=== PATIENT | male | born 1980 | race Caucasian/White ===

== ENCOUNTER 2020-07-23 08:07 | Outpatient (REF) | payer BC, SELFPAY ==
[2020-07-23 09:02] LABS: MANUAL DIFF FLAG NO
[2020-07-23 09:07] LABS: Basophils Percent Auto 0.8 % (0-2); Eosinophils Absolute Auto 0.1 X10*3/uL (0.0-0.4); Eosinophils Percent Auto 2.3 % (0-4); Hematocrit 46.5 % (42-52); Hemoglobin 16.1 g/dl (14.0-18.0); Lymphocytes Absolute Auto 0.9 X10*3/uL (1.2-4.9); Lymphocytes Percent Auto 23.3 % (20-40); Mean Corpuscular HGB Conc 34.6 g/dl (31.0-36.0); Mean Corpuscular Hemoglobin 35.9 pg (27.0-33.0); Mean Corpuscular Volume 103.6 fL (80-98); Monocytes Absolute Auto 0.3 X10*3/uL (0.1-1.2); Monocytes Percent Auto 8.5 % (2-11); Neutrophils Absolute Auto 2.5 X10*3/uL (2.0-8.3); Neutrophils Percent Auto 65.1 % (45-73); Platelet Count 189 X10*3/uL (160-400); Red Blood Count 4.49 X10*6/uL (4.60-5.80); Red Cell Distribution Width 12.7 % (11.0-16.0); White Blood Count 3.9 X10*3/uL (4.8-10.8)
[2020-07-23 09:31] LABS: Alanine Aminotransferase 41 U/L (0-40); Albumin Level 4.6 g/dL (3.5-5.0); Alkaline Phosphatase 77 U/L (39-117); Anion Gap 12 (12-20); Aspartate Amino Transferase 29 U/L (5-37); Bilirubin Total 0.8 mg/dL (0.0-1.0); Blood Urea Nitrogen 13 mg/dL (9-16); C Reactive Protein 0.14 mg/dL (< or = 0.50); Calcium 9.1 mg/dL (8.4-10.2); Carbon Dioxide 29 mmol/L (22-29); Chloride 103 mmol/L (96-108); Estimated Glomerular Filt Rate > 60; Glucose Random 111 mg/dL (60-115); Potassium 4.8 mmol/l (3.3-5.1); Sodium 139 mmol/L (135-145); Total Protein 7.1 g/dL (6.5-8.0)
== END 2020-07-23 08:08 | disposition home or self-care (01) ==
LOC: HO.LAB 08:07
PROVIDERS: PCP Internal Medicine; Visit Provider Internal Medicine Gastroenterology
DX: K51.30 Ulcerative (chronic) rectosigmoiditis without complications (principal)
CPT/HCPCS: 36415; 80053; 80299; 85025; 86140

== ENCOUNTER → 2020-07-28 08:07 | Outpatient (BNVA) | payer SELFPAY | PROVIDERS: PCP Internal Medicine; Referring Provider Internal Medicine; Visit Provider Internal Medicine Gastroenterology | DX: K51.30 Ulcerative (chronic) rectosigmoiditis without complications (principal); K21.9 Gastro-esophageal reflux disease without esophagitis; Z79.899 Other long term (current) drug therapy | CPT/HCPCS: 99212 ==

== ENCOUNTER → 2021-05-21 07:51 | Outpatient (BNVA) | payer BC, SELFPAY | PROVIDERS: Visit Provider Internal Medicine Gastroenterology ==

== ENCOUNTER 2022-03-09 14:15 | Outpatient (REF) | payer BC, SELFPAY ==
[2022-03-09 14:26] LABS: MANUAL DIFF FLAG NO
[2022-03-09 15:08] LABS: Basophils Percent Auto 0.5 % (0-2); Eosinophils Absolute Auto 0.1 X10*3/uL (0.0-0.4); Eosinophils Percent Auto 1.5 % (0-4); Hematocrit 42.9 % (42.0-52.0); Hemoglobin 15.2 g/dl (14.0-18.0); Imm Gran Abs Auto 0.02 X10*3/uL (0.00-0.03); Imm Gran Pct Auto 0.3 % (0.0-0.4); Lymphocytes Absolute Auto 1.8 X10*3/uL (1.2-4.9); Lymphocytes Percent Auto 29.4 % (20-40); Mean Corpuscular HGB Conc 35.4 g/dl (31.0-36.0); Mean Corpuscular Volume 101.7 fL (80.0-98.0); Mean Platelet Volume 10.2 fL (9.4-12.4); Monocytes Absolute Auto 0.4 X10*3/uL (0.1-1.2); Monocytes Percent Auto 6.6 % (2-11); Neutrophils Absolute Auto 3.8 x10*3/uL (2.0-8.3); Neutrophils Percent Auto 61.7 % (45-73); Platelet Count 201 X10*3/uL (160-400); Red Blood Count 4.22 X10*6/uL (4.60-5.80); Red Cell Distribution Width 13.5 % (11.0-16.0); White Blood Count 6.2 X10*3/uL (4.8-10.8)
[2022-03-09 15:53] LABS: Vitamin D 25-OH Total 40.4 ng/mL (>30)
[2022-03-09 16:09] LABS: Vitamin B12 475 pg/mL (200-900)
[2022-03-09 16:32] LABS: Alanine Aminotransferase 27 U/L (0-40); Albumin Level 4.7 g/dL (3.5-5.0); Alkaline Phosphatase 96 U/L (39-117); Anion Gap 13 (12-20); Aspartate Amino Transferase 21 U/L (5-37); Bilirubin Total 0.3 mg/dL (0.0-1.0); Blood Urea Nitrogen 11 mg/dL (9-16); C Reactive Protein 0.16 mg/dL (< or = 0.50); Calcium 9.4 mg/dL (8.4-10.2); Carbon Dioxide 28 mmol/L (22-29); Chloride 105 mmol/L (96-108); Estimated Glomerular Filt Rate > 60; Glucose Random 86 mg/dL (60-115); Potassium 4.4 mmol/L (3.3-5.1); Sodium 142 mmol/L (135-145); Total Protein 7.2 g/dL (6.5-8.0)
[2022-03-10 04:08] LABS: Hepatitis A Antibody IgG Nonreactive (Nonreactive); ~Hepatitis A Antibody IgG 0.26 S/CO (0.00-0.99)
[2022-03-10 04:11] LABS: HBS Num1 0.62 mIU/mL (0-7.99); HBsAGNum1 0.22 S/CO (0.00-0.99); Hepatitis B Surface Antigen Negative (Negative); ~Hepatitis B Surface Antibody NONREACTIVE (Nonreactive)
== END 2022-03-09 14:16 | disposition home or self-care (01) ==
LOC: HO.LAB 14:15
PROVIDERS: PCP Internal Medicine; Visit Provider Internal Medicine Gastroenterology
DX: K51.30 Ulcerative (chronic) rectosigmoiditis without complications (principal)
CPT/HCPCS: 36415; 80053; 82306; 82607; 85025; 86140; 86706; 86708; 87340

== ENCOUNTER → 2022-03-11 08:30 | Outpatient (BNVA) | payer BC, SELFPAY | PROVIDERS: PCP Internal Medicine; Visit Provider Internal Medicine Gastroenterology | DX: Z23 Encounter for immunization (principal); K21.9 Gastro-esophageal reflux disease without esophagitis; K51.30 Ulcerative (chronic) rectosigmoiditis without complications | CPT/HCPCS: 90471; 90472; 90632; 90746 ==

== ENCOUNTER 2022-04-12 16:19 | Outpatient (REF) | payer BC, SELFPAY ==
--- NOTE | ~2022-04-12 | XR_ITS ---
EXAMINATION: XR STERNUM CLINICAL INFORMATION: Other specified disorders of cartilage. COMPARISON: Chest 04/20/2018. TECHNIQUE: 2 views of the sternum were obtained. FINDINGS: The sternum is intact with no bony erosive changes, lucencies or sclerosis. No fracture identified. The soft tissues around the sternum are normal. XR/XR sternum min 2V IMPRESSION: Unremarkable sternum exam.
== END 2022-04-12 16:20 | disposition home or self-care (01) ==
LOC: HO.XRAY 16:19
PROVIDERS: PCP Nurse Practitioner Family; Visit Provider Nurse Practitioner Family
DX: M94.8X8 Other specified disorders of cartilage, other site (principal)
CPT/HCPCS: 71120

== ENCOUNTER 2022-05-17 14:17 | Outpatient (REF) | payer BC, SELFPAY ==
--- NOTE | ~2022-05-17 | US_ITS ---
EXAMINATION: US SCROTUM CLINICAL INFORMATION: Scrotal varices. COMPARISON: None TECHNIQUE: A sonogram of the scrotum was performed assessing real-time grajeda-scale appearance and color Doppler flow. Spectral Doppler analysis of the arterial and venous flow were performed in the testes bilaterally. FINDINGS: RIGHT: Right testicle measures 4.0 x 2.1 x 3.1 cm, volume 13.7 mL. No focal testicular parenchymal lesions are visualized. Spectral Doppler analysis of the arterial and venous flow is normal in the right testis. Right epididymal head is normal in size. No right hydrocele is seen. Numerous dilated right testicular veins are seen up to 4 mm in diameter. Right epididymal Doppler flow is normal. LEFT: Left testicle measures 3.9 x 1.6 x 2.7 cm, volume 8.7 mL. No focal testicular parenchymal lesions are visualized. Spectral Doppler analysis of the arterial and venous flow is normal in the left testis. Left epididymal head is normal in size. No left hydrocele is seen. Numerous dilated left testicular veins up to 6 mm in diameter. Left epididymal Doppler flow is normal. US/US scrotum IMPRESSION: Left greater than right bilateral varicoceles.
== END 2022-05-17 14:18 | disposition home or self-care (01) ==
LOC: HO.US 14:17
PROVIDERS: Visit Provider Nurse Practitioner Family
DX: I86.1 Scrotal varices (principal)
CPT/HCPCS: 76870

== ENCOUNTER 2022-07-26 09:46 | Day surgery (SDC) | payer BC, SELFPAY ==
[2022-07-20 12:36] VITALS: BMI 29.3
--- NOTE | 2022-07-23 08:31 | HO.ANESPROP2 ---
Documented by User: Ruth Benson NP 07/23/22 08:32 HPI - Anesthesia Eval Consult details Narrative: 42yo M for Upper Endoscopy and Colonoscopy [facility] Active Problems Active Problems: All Active Problems (Updated 03/25/22 @ 18:19 by Maurilio Valente, [facility]) Varicocele (Acute) Fibroma of foot (Acute) Pigmented skin lesion of uncertain behavior of head (Acute) Wart (Acute) Xiphoiditis (Acute) GERD (gastroesophageal reflux disease) (Acute) Ulcerative proctosigmoiditis (Acute) Past Medical History Medical History GERD (gastroesophageal reflux disease) Ulcerative proctosigmoiditis Family History Family History Father Family history of high blood pressure Mother Family history of high blood pressure Sister Substance use disorder Surgical History Surgical History History of appendectomy History of colonoscopy History of hernia repair Social History Social History Housing: House Alcohol intake: current Alcohol intake frequency: a few times a month Alcohol type: beer, wine and hard liquor Patient Tobacco Use Status: Never used Tobacco e-Cigarette/Vaping Use: Never Used Use of substances other than those prescribed or required for medical reasons: No Are you DNR?: No Advance Directives: No Advance Directives Information Provided: Yes service: No Current occupational status: employed Cognitive needs: No Hearing needs: No Vision needs: No Meds Allergies Allergy/AdvReac Type Severity Reaction Status Date / Time pollen extracts [POLLEN] Allergy Unknown CONGESTED Verified 03/25/22 15:54 scallops Allergy Unknown throat Uncoded 05/21/21 07:59 swelling and itch Home Medications Medication Instructions Recorded Confirmed Last Taken Type cetirizine 10 mg capsule (Zyrtec) 10 mg PO DAILY PRN 03/11/22 03/25/22 Unknown History Exam Exam Date and Time: July 23, 2022 0831 Height,Weight and Vital Signs: Height 6 ft 4 in Weight 109.316 kg Pertinent Lab Results Pertinent Lab Results: Laboratory Tests 03/09/22 03/09/22 14:25 14:25 WBC 6.2 Hgb 15.2 Hct 42.9 Plt Count 201 Sodium 142 Potassium 4.4 Chloride 105 Carbon Dioxide 28 BUN 11 Creatinine 0.90 Assessment and Plan Assessment Anesthesia Assessment: Chart Reviewed Documented by User: Cathy Oliva MD 07/26/22 10:17 [facility] Past Medical History Medical History GERD (gastroesophageal reflux disease) Ulcerative proctosigmoiditis Family History Family History Father Family history of high blood pressure Mother Family history of high blood pressure Sister Substance use disorder Surgical History Surgical History History of appendectomy History of colonoscopy History of hernia repair History of Problems with Anesthesia: No Social History Social History Housing: House Alcohol intake: current Alcohol intake frequency: a few times a month Alcohol type: beer, wine and hard liquor Patient Tobacco Use Status: Never used Tobacco e-Cigarette/Vaping Use: Never Used Use of substances other than those prescribed or required for medical reasons: No Are you DNR?: No Advance Directives: No Advance Directives Information Provided: Yes service: No Current occupational status: employed Cognitive needs: No Hearing needs: No Vision needs: No Meds Allergies Allergy/AdvReac Type Severity Reaction Status Date / Time pollen extracts [POLLEN] Allergy Unknown CONGESTED Verified 03/25/22 15:54 scallops Allergy Unknown throat Uncoded 05/21/21 07:59 swelling and itch Home Medications Medication Instructions Recorded Confirmed Last Taken Type cetirizine 10 mg capsule (Zyrtec) 10 mg PO DAILY PRN 03/11/22 03/25/22 Unknown History Exam Airway Mallampati Class: III TM Dist: >3cm Neck ROM: Full Loose/Missing/Broken Teeth: No Heart: RRR Lungs: CTA Assessment and Plan Assessment Anesthesia Assessment: Anesthesia Plan Discussed Final Anesthetic Review History of Problems with Anesthesia: No NPO: Yes ASA Class: II Final Preanesthetic Review: Meds/Allgs Chart Reviewed, Consent Obtained/Reviewed and Anes Risks/Benef Reviewed Patient Risk: Low Procedure Risk: Low Anesthetic Plan Anesthetic Plan: MAC: Disposition: Standard PACU
[2022-07-26 09:55] VITALS: BP 119/78; PULSE 72; RESP 16; TEMP 36.1; O2SAT 96
--- NOTE | 2022-07-26 09:58 | MHC.SHP ---
Pre-Procedural Eval Section A Date of Service: 07/26/22 The patient is an INPATIENT: No The History & Physical has been completed within 30 days and I have reviewed it.: No Section B Chief Complaint: Ulcerative (chronic) rectosigmoiditis,reflux disea Details of Present Illness: colon cancer screen, Crohn's disease, GERD Relevant Family History (Specify if Yes): No Relevant Social History: None Present Medications: see Short Stay Collaborative assessment Medical History: Significant History ( GERD, Crohn's disease) History of Previous Operations: Relevant previous surgery/procedure and date(s) (History of appendectomy History of colonoscopy History of hernia repair) Allergies: Allergies Allergy/AdvReac Type Severity Reaction Status Date / Time pollen extracts [POLLEN] Allergy Unknown CONGESTED Verified 03/25/22 15:54 scallops Allergy Unknown throat Uncoded 05/21/21 07:59 swelling and itch Review of Systems Sugical H&P ROS: Negative: Constitution, Cardiovascular, Respiratory and Gastrointestinal Exam Surgical H&P Exam: Normal: Heart, Normal: Lungs, Normal: Extremities and Normal: Abdomen Plan Diagnosis/Plan: Unchanged I have reviewed the history and physical and performed a pertinent physical examination on my patient. No changes have occurred unless specified.
--- NOTE | 2022-07-26 10:05 | P.BOP_ITS ---
Brief Operative Note Date of Service: 07/26/22 Pre-op diagnosis: colon cancer screening, Crohn's disease, GERD Post-op diagnosis: other ( GERD, gastritis, gastric polyps, duodenal nodule, diverticulosis, hemorrhoids) Procedure: UPPER GI ENDOSCOPY WITH BIOPSY. COLONOSCOPY TO CECUM WITH BIOPSIES Surgeon: Tami Garland MD Anesthesia: MAC Was an Super[employer] used for this Procedure?: Yes Super[employer]: Jackie Landrum Estimated blood loss (mL): 0 Pathology: other (A. duodenal nodule B. gastric antrum bxs, R/O H. pylori C. gastric polyp D. distal esophagus, R/O Orellana's esophagus E. right colon bxs, R/O Crohn's disease F. transverse col) Condition: stable Disposition: PACU
--- NOTE | 2022-07-26 10:06 | W.PM.OPN ---
Operative Note Operative Note Date of Service: 07/26/22 Narrative: Pre-op diagnosis: colon cancer screening, Crohn's disease, GERD Post-op diagnosis:?other ( GERD, gastritis, gastric polyps, duodenal nodule, diverticulosis, hemorrhoids) Surgeon: Tami Garland MD Anesthesia:?MAC FLEXIBLE TRANSORAL UPPER GASTROINTESTINAL ENDOSCOPY WITH BIOPSIES AND COLONOSCOPY TILL CECUM WITH BIOPSIES UPPER ENDOSCOPY Consent: Indications for the procedure and potential complications of bleeding, perforation, reaction to medications and missed diagnosis were discussed with the patient and informed consent was obtained. Instrument: Olympus GIF H 190 mid size upper endoscope Monitoring: Vital signs and clinical assessment, continuous EKG monitoring, Pulse oximetry, Carbon Dioxide monitoring and blood pressure monitoring were done throughout the procedure. Procedure: The patient was placed in the left lateral decubitis position and pre-procedure medications were administered and a bite block was placed. The endoscope was inserted into the mouth and advanced under direct vision to the third part of duodenum. A careful inspection was made as the upper endoscope was withdrawn including a retroflexed examination of the proximal stomach; Findings and interventions are described below. Findings: Larynx: Normal Esophagus: GE junction at 42 cms. No esophagitis. 1 cms tongue of possible Orellana's - biopsied Stomach: A few 1 to 1.5 cms benign appearing polyps in the gastric body - biopsied. Mild gastric erythema. Biopsies were obtained. Grade 2 flap valve on retroflexed examination of the cardia. Duodenum: Normal bulb. A 10 mm polyp/nodule in the medial wall of proximal descending duodenum - biopsied. Intervention: Biopsies as noted above COLONOSCOPY PROCEDURE NOTE Consent: Indications for the procedure and potential complications of bleeding, perforation, reaction to medications and missed diagnosis were discussed with the patient and informed consent was obtained. Instrument: Olympus CF H 190 L variable stiffness adult colonoscope Monitoring: Vital signs and clinical assessment, intermittent blood pressure monitoring, continuous EKG monitoring, Pulse oximetry and Carbon Dioxide monitoring were done throughout the procedure. Colon withdrawl time was 30 minutes. Procedure: The patient was placed in the left lateral decubitis position and pre-procedure medications were administered. After a digital rectal examination of the ano-rectum, the video colonoscope was inserted into the rectum and advanced through the colon to the cecum. The colonoscope was slowly withdrawn in a retrograde panoramic fashion and the colon mucosa was carefully examined including a retroflexed view of the rectum. Findings and interventions are described below. Procedure Difficulty: colon was long and tortuous and there was recurrent loop formation. patient was placed in the supine position and LLQ pressure was applied to intubate the cecum Findings: Terminal Ileum: Not evaluated Cecum: Normal Ascending Colon: Normal Transverse Colon: Normal Descending Colon: Moderate diverticulosis Sigmoid Colon: Moderate diverticulosis Rectum: Normal Ano-rectum: Moderate internal hemorrhoids Colon preparation: Good to fair despite copious irrigation. Suboptimal exam due to excessive spasm in the colon. Impression and Post Procedure Diagnosis: Endoscopy Findings: ESOPHAGUS: GE junction at 42 cms. No esophagitis. 1 cms tongue of possible Orellana's - biopsied STOMACH: A few 1 to 1.5 cms benign appearing polyps in the gastric body - biopsied. Mild gastric erythema. Biopsies were obtained. DUODENUM: Normal bulb. A 10 mm polyp/nodule in the medial wall of proximal descending duodenum - biopsied. Colonoscopy Findings: No polyps were detected. Inactive colitis in the left colon - random biopsies were obtained. Moderate diverticulosis seen in the left colon Moderate hemorrhoids on retroflexed exam. Plan: Await pathology results Patient has an appointment on 08/19/22 in the GI Clinic with Tami Garland M.D. Repeat Colonoscopy interval based on path results - in 1-2 years if no dysplasia seen on biopsies. Colon polyps and diverticulosis handouts were given in the discharge area
[2022-07-26] MEDS: Lactated Ringers 1,000 ML 100 ML IVCONT (10:17)
[2022-07-26 11:33] VITALS: BP 115/69; PULSE 65; RESP 20; TEMP 36.4; O2SAT 100
[2022-07-26 11:48] VITALS: BP 112/78; PULSE 61; RESP 18; TEMP 36.6; O2SAT 100
== END 2022-07-26 12:25 | disposition home or self-care (01) ==
PROVIDERS: PCP Nurse Practitioner Family; Visit Provider Internal Medicine Gastroenterology
PROC: (CPT 45380; principal; 2022-07-26 11:00)
DX: K51.30 Ulcerative (chronic) rectosigmoiditis without complications (principal); K57.30 Diverticulosis of large intestine without perforation or abscess without bleeding; K64.8 Other hemorrhoids; D13.2 Benign neoplasm of duodenum; K21.9 Gastro-esophageal reflux disease without esophagitis; K29.50 Unspecified chronic gastritis without bleeding; K31.7 Polyp of stomach and duodenum; Z79.899 Other long term (current) drug therapy
CPT/HCPCS: 45380; 43239; 88305; 88342

== ENCOUNTER → 2022-10-21 09:40 | Outpatient (BNVA) | payer OTHER, SELFPAY | PROVIDERS: PCP Nurse Practitioner Family; Visit Provider Urology | DX: Z13.89 Encounter for screening for other disorder (principal) ==

== ENCOUNTER → 2022-11-18 07:30 | Outpatient (BNVA) | payer OTHER, SELFPAY | PROVIDERS: PCP Nurse Practitioner Family; Referring Provider Nurse Practitioner Family; Visit Provider Internal Medicine Gastroenterology | DX: Z13.89 Encounter for screening for other disorder (principal) ==

== ENCOUNTER 2023-03-30 10:40 | Outpatient (AMB) | payer OTHER, SELFPAY ==
--- NOTE | 2023-03-30 10:59 | AM.OFFWIN_ITS ---
Intake Vital Signs 03/30/23 11:01 Height 6 ft 4 in BP 150/80 H Blood Pressure Location Lt brachial Position Sitting Pulse 68 Pulse Source Pulse Oximeter Temp 97.8 F Temp Source Temporal Artery Scan Pulse Oximetry (%) 97 Oxygen Delivery Method Room Air Intake Visit Reasons: EST/congestion for past month Intake Note: pt is here congestion, cough over a month Patient Tobacco Use Status: Never used Tobacco Allergies pollen extracts [POLLEN] Allergy (Unknown, Verified 03/30/23 11:12) CONGESTED scallops Allergy (Unknown, Uncoded 12/22/22 08:10) throat swelling and itch Medication List - Last Reconciled 03/30/23 by MARGARET Bain-JENNIFER bisacodyl (Dulcolax (bisacodyl)) 10 mg (2 x 5 mg) PO ONCE 1 day cetirizine (Zyrtec) 10 mg PO DAILY PRN mercaptopurine 100 mg (2 x 50 mg) PO DAILY 3 months mesalamine 4.8 grams (4 x 1.2 gram) PO DAILY 90 days nystatin 1 appl topical DAILY omeprazole 20 mg PO BID 90 days polyethylene glycol 3350 (Miralax) 238 grams PO ONCE 1 day Do you need a note to return to daycare/school/sports/work: Yes HPI HPI Comments History of Present Illness Details here today with complaints of sinus congestion and head cold so she did with a headache that is been present for about a month reports 1 month ago becoming ill with similar symptoms which resolved for a short period of time and came back. History of seasonal allergy is has been out camping for the last few weeks reports being affected by the pollen. Also known sick exposure at the campground he was at. He denies fever and chills. Admits to mild sore throat and some pressure in his ears. Postnasal drip. Denies a cough or chest pain. REPLACED BY [facility] Medical History GERD (gastroesophageal reflux disease) Ulcerative proctosigmoiditis Surgical History History of appendectomy History of colonoscopy History of esophagogastroduodenoscopy (EGD) History of hernia repair Family History Father Family history of high blood pressure Mother Family history of high blood pressure Sister Substance use disorder Social History Housing: House Alcohol intake: current Alcohol intake frequency: a few times a month Alcohol type: beer, wine and hard liquor Patient Tobacco Use Status: Never used Tobacco e-Cigarette/Vaping Use: Never Used service: No Current occupational status: employed Cognitive needs: No Hearing needs: No Vision needs: No Review of Systems Const All systems reviewed & are unremarkable except as noted in HPI and below Physical Exam Vital Signs: Last Vital Signs Temp 97.8 F 03/30/23 11:01 Pulse 68 03/30/23 11:01 BP 150/80 H 03/30/23 11:01 Pulse Ox 97 03/30/23 11:01 Oxygen Delivery Method Room Air 03/30/23 11:01 Const Other: Awake alert oriented no acute distress sclera and conjunctiva clear bilateral TM intact with effusions bilat nares patent, turbinates pale and boggy edematous on the left, frontal & maxillary sinuses tender to palpation bilaterally postnasal drip otherwise pharynx within normal limits rrr lung sounds clear to auscultation bilaterally Assessment & Plan Assessment & Plan (1) Sinusitis: Code(s): J32.9 - Chronic sinusitis, unspecified Medications: New amoxicillin-pot clavulanate 875-125 mg 1 tab PO BID 14 tabs 0RF 7 days Coding Level of Care Code Est Pt Level 3 (87583) Diagnoses Sinusitis J32.9
[2023-03-30 11:01] VITALS: BP 150/80; PULSE 68; TEMP 36.6; O2SAT 97
== END 2023-03-30 11:32 | disposition home or self-care (01) ==
PROVIDERS: PCP Nurse Practitioner Family; Visit Provider Nurse Practitioner Family
DX: J32.9 Chronic sinusitis, unspecified (principal)
CPT/HCPCS: 99213

== ENCOUNTER 2023-04-05 10:13 | Outpatient (AMB) | payer OTHER, SELFPAY ==
--- NOTE | 2023-04-05 11:16 | AM.OFFWIN_ITS ---
Intake Vital Signs 04/05/23 11:19 Height 6 ft 4 in BP 122/78 Blood Pressure Location Rt brachial Position Sitting Pulse 67 Pulse Source Pulse Oximeter Temp 96.4 F L Temp Source Temporal Artery Scan Pulse Oximetry (%) 98 Oxygen Delivery Method Room Air Intake Visit Reasons: EP cold symptoms after rx Intake Note: Pt is here c/o cold symptoms even after being seen on 03/30. Pt states antibiotics has not helped and he is almost done. Patient Tobacco Use Status: Never used Tobacco Allergies pollen extracts [POLLEN] Allergy (Unknown, Verified 04/05/23 11:18) CONGESTED scallops Allergy (Unknown, Uncoded 04/05/23 11:18) throat swelling and itch Do you need a note to return to daycare/school/sports/work: No HPI EP cold symptoms after rx HPI Details 42-year-old male presents to the office for a sick visit. Continues to have postnasal drip, cough and minimal shortness of breath. [facility] Medical History GERD (gastroesophageal reflux disease) Ulcerative proctosigmoiditis Surgical History History of appendectomy History of colonoscopy History of esophagogastroduodenoscopy (EGD) History of hernia repair Family History Father Family history of high blood pressure Mother Family history of high blood pressure Sister Substance use disorder Social History Housing: House Alcohol intake: current Alcohol intake frequency: a few times a month Alcohol type: beer, wine and hard liquor Patient Tobacco Use Status: Never used Tobacco e-Cigarette/Vaping Use: Never Used service: No Current occupational status: employed Cognitive needs: No Hearing needs: No Vision needs: No Physical Exam Vital Signs: Last Vital Signs Temp 96.4 F L 04/05/23 11:19 Pulse 67 04/05/23 11:19 BP 122/78 04/05/23 11:19 Pulse Ox 98 04/05/23 11:19 Oxygen Delivery Method Room Air 07/18/23 11:19 Const General: cooperative and healthy appearing Nutritional Appearance: well nourished Orientation/consciousness: patient oriented x3 Limitations: no limitations HEENT Head: Yes normal to inspection Eyes General: appearance normal, both eyes and all related structures Neck Neck: Yes normal visual inspection Chest Chest palpation & inspection: normal palpation of entire chest wall Resp Effort & Inspection: normal respiratory effort Neuro General: patient oriented x3 Assessment & Plan Assessment & Plan (1) Aspiration pneumonia: Comment: Azithromycin and Flonase added to the regimen Code(s): J69.0 - Pneumonitis due to inhalation of food and vomit (2) Upper respiratory tract infection: Code(s): J06.9 - Acute upper respiratory infection, unspecified Coding Level of Care Code Est Pt Level 3 (43860) Diagnoses Aspiration pneumonia J69.0 Upper respiratory tract infection J06.9
[2023-04-05 11:19] VITALS: BP 122/78; PULSE 67; TEMP 35.8; O2SAT 98
== END 2023-04-05 12:07 | disposition home or self-care (01) ==
PROVIDERS: PCP Nurse Practitioner Family; Visit Provider Internal Medicine
DX: J69.0 Pneumonitis due to inhalation of food and vomit (principal); J06.9 Acute upper respiratory infection, unspecified
CPT/HCPCS: 99213

== ENCOUNTER 2023-04-12 13:35 | Outpatient (AMB) | payer OTHER, SELFPAY ==
--- NOTE | 2023-04-12 14:06 | MHC.OFFWIV ---
Intake Vital Signs 04/12/23 14:08 Height 6 ft 4 in BP 130/78 Blood Pressure Location Lt brachial Position Sitting Pulse 78 Pulse Source Pulse Oximeter Temp 95.9 F L Temp Source Temporal Artery Scan Pulse Oximetry (%) 98 Oxygen Delivery Method Room Air Intake Visit Reasons: EP, Bacteria in head? Intake Note: Pt is here c/o having a cold headache. Pt states he has been on two antibiotics and none have helped him Patient Tobacco Use Status: Never used Tobacco Allergies pollen extracts [POLLEN] Allergy (Unknown, Verified 04/12/23 14:09) CONGESTED scallops Allergy (Unknown, Uncoded 04/12/23 14:09) throat swelling and itch Do you need a note to return to daycare/school/sports/work: No HPI EP, Bacteria in head? HPI Details 42-year-old male presents to the office for a sick visit. Patient has been seen twice for persisting congestion, sneezing, earaches. He has received 2 rounds of antibiotics and Flonase. He reports no improvement in symptoms. [facility] Medical History GERD (gastroesophageal reflux disease) Ulcerative proctosigmoiditis Surgical History History of appendectomy History of colonoscopy History of esophagogastroduodenoscopy (EGD) History of hernia repair Family History Father Family history of high blood pressure Mother Family history of high blood pressure Sister Substance use disorder Social History Housing: House Alcohol intake: current Alcohol intake frequency: a few times a month Alcohol type: beer, wine and hard liquor Patient Tobacco Use Status: Never used Tobacco e-Cigarette/Vaping Use: Never Used service: No Current occupational status: employed Cognitive needs: No Hearing needs: No Vision needs: No Physical Exam Vital Signs: Last Vital Signs Temp 95.9 F L 04/12/23 14:08 Pulse 78 04/12/23 14:08 BP 130/78 04/12/23 14:08 Pulse Ox 98 04/12/23 14:08 Oxygen Delivery Method Room Air 04/12/23 14:08 Const General: cooperative and healthy appearing Nutritional Appearance: well nourished Orientation/consciousness: patient oriented x3 Limitations: no limitations HEENT Head: Yes normal to inspection Eyes General: appearance normal, both eyes and all related structures Neck Neck: Yes normal visual inspection Chest Chest palpation & inspection: normal palpation of entire chest wall Resp Effort & Inspection: normal respiratory effort Neuro General: patient oriented x3 Assessment & Plan Assessment & Plan (1) Upper respiratory tract infection: Code(s): J06.9 - Acute upper respiratory infection, unspecified Plan: Continue Flonase. Singular added to the regimen. Coding Level of Care Code Est Pt Level 3 (66081) Diagnoses Upper respiratory tract infection J06.9
[2023-04-12 14:08] VITALS: BP 130/78; PULSE 78; TEMP 35.5; O2SAT 98
== END 2023-04-12 14:43 | disposition home or self-care (01) ==
PROVIDERS: PCP Nurse Practitioner Family; Visit Provider Internal Medicine
DX: J06.9 Acute upper respiratory infection, unspecified (principal)
CPT/HCPCS: 99213

== ENCOUNTER 2023-04-26 10:31 | Day surgery (SDC) | payer OTHER, SELFPAY ==
[2023-04-22 09:01] VITALS: BMI 31.4
[2023-04-26 11:30] VITALS: BP 130/87; PULSE 83; RESP 18; TEMP 36.3; O2SAT 97; BMI 31.0
--- NOTE | 2023-04-26 12:09 | HO.ANESPROP2 ---
COUNT INCLUDES THE [facility] Active Problems Active Problems: All Active Problems (Updated 04/05/23 @ 12:15 by Karan Mckinney MD) Upper respiratory tract infection (Acute) Sinusitis (Acute) Tinea cruris (Acute) Scrotal erythema (Acute) Varicocele (Acute) Fibroma of foot (Acute) Pigmented skin lesion of uncertain behavior of head (Acute) Wart (Acute) Xiphoiditis (Acute) GERD (gastroesophageal reflux disease) (Acute) Ulcerative proctosigmoiditis (Acute) Past Medical History Medical History GERD (gastroesophageal reflux disease) Ulcerative proctosigmoiditis Family History Family History Father Family history of high blood pressure Mother Family history of high blood pressure Sister Substance use disorder Surgical History Surgical History History of appendectomy History of colonoscopy History of esophagogastroduodenoscopy (EGD) History of hernia repair History of Problems with Anesthesia: No Social History Social History Housing: House Alcohol intake: current Alcohol intake frequency: a few times a month Alcohol type: beer, wine and hard liquor Patient Tobacco Use Status: Never used Tobacco e-Cigarette/Vaping Use: Never Used Use of substances other than those prescribed or required for medical reasons: No Are you DNR?: No Advance Directives: No Advance Directives Information Provided: Yes Recently lost weight without trying: No Nutrition Risks: No Nutritional Risk Poor oral hygiene: No service: No Current occupational status: employed Cognitive needs: No Hearing needs: No Vision needs: No Meds Allergies Allergy/AdvReac Type Severity Reaction Status Date / Time pollen extracts [POLLEN] Allergy Unknown CONGESTED Verified 04/12/23 14:09 scallops Allergy Unknown throat Uncoded 04/12/23 14:09 swelling and itch Home Medications Medication Instructions Recorded Confirmed Last Taken Type cetirizine 10 mg capsule (Zyrtec) 10 mg PO DAILY PRN 03/11/22 03/30/23 Unknown History Exam Exam Date and Time: April 26, 2023 1209 Height,Weight and Vital Signs: Height 6 ft 4 in Weight 115.666 kg Last Vital Signs Temp 97.3 F 04/26/23 11:30 Pulse 83 04/26/23 11:30 Resp 18 04/26/23 11:30 BP 130/87 04/26/23 11:30 Pulse Ox 97 04/26/23 11:30 O2 Del Method Room Air 04/26/23 11:30 Airway Mallampati Class: III TM Dist: >3cm Neck ROM: Full Loose/Missing/Broken Teeth: No (RRR) Lungs: CTA Assessment and Plan Assessment Anesthesia Assessment: Anesthesia Plan Discussed and Chart Reviewed Final Anesthetic Review History of Problems with Anesthesia: No NPO: Yes ASA Class: II Final Preanesthetic Review: Meds/Allgs Chart Reviewed, Consent Obtained/Reviewed and Anes Risks/Benef Reviewed Patient Risk: Low Procedure Risk: Intermediate Anesthetic Plan Anesthetic Plan: MAC: Disposition: Standard PACU
--- NOTE | 2023-04-26 12:30 | P.HPSUR_ITS ---
Pre-Procedural Eval Section A Date of Service: 04/26/23 The patient is an INPATIENT: No The History & Physical has been completed within 30 days and I have reviewed it.: No Section B Chief Complaint: Crohn's disease, FU of duodenal polyp Relevant Family History (Specify if Yes): No Relevant Social History: None Present Medications: see Short Stay Collaborative assessment Medical History: Significant History (GERD (gastroesophageal reflux disease) Ulcerative proctosigmoiditis) History of Previous Operations: Relevant previous surgery/procedure and date(s) (History of appendectomy History of colonoscopy History of esophagogastroduodenoscopy (EGD) History of hernia repair) Allergies: Allergies Allergy/AdvReac Type Severity Reaction Status Date / Time pollen extracts [POLLEN] Allergy Unknown CONGESTED Verified 04/12/23 14:09 scallops Allergy Unknown throat Uncoded 04/12/23 14:09 swelling and itch Review of Systems Sugical H&P ROS: Negative: Constitution, Cardiovascular, Respiratory and Ga strointestinal Exam Surgical H&P Exam: Normal: Heart, Normal: Lungs, Normal: Extremities and Normal: Abdomen Plan Diagnosis/Plan: Change (EGD for fu of duodenal polyp and colonoscopy for IBD surveillance) I have reviewed the history and physical and performed a pertinent physical examination on my patient. No changes have occurred unless specified. Time Spent With Patient Time: Total time managing care of this patient today ____ minutes.
--- NOTE | 2023-04-26 12:43 | W.PM.OPN ---
Operative Note Operative Note Date of Service: 04/26/23 Narrative: FLEXIBLE TRANSORAL UPPER GASTROINTESTINAL ENDOSCOPY WITH BIOPSIES AND COLONOSCOPY TILL CECUM WITH BIOPSIES, SNARE POLYPECTOMY AND CHROMOENDOSCOPY Pre-op diagnosis: IBD surveillance, follow-up of duodenal polyp Post-op diagnosis: GERD, duodenal polyp, colon polyps, diverticulosis, hemorrhoids, inactive IBD? Endoscopist:? Tami Garland MD Anesthesia:?MAC UPPER ENDOSCOPY Consent: Indications for the procedure and potential complications of bleeding, perforation, reaction to medications and missed diagnosis were discussed with the patient and informed consent was obtained. Instrument: Olympus GIF H 190 mid size upper endoscope Monitoring: Vital signs and clinical assessment, continuous EKG monitoring, Pulse oximetry, Carbon Dioxide monitoring and blood pressure monitoring were done throughout the procedure. Procedure: The patient was placed in the left lateral decubitis position and pre-procedure medications were administered and a bite block was placed. The endoscope was inserted into the mouth and advanced under direct vision to the third part of duodenum. A careful inspection was made as the upper endoscope was withdrawn including a retroflexed examination of the proximal stomach; Findings and interventions are described below. Findings: Larynx: Normal Esophagus: GE junction at 42 cms. No esophagitis. 1 cms tongue of possible Orellana's - No Orellana's on biopsies obtained during last EGD. Stomach:?A few 1 to 1.5 cms benign appearing polyps in the gastric body - benign on biopsies obtained during last EGD. Grade 2 flap valve on retroflexed examination of the cardia. Duodenum:?Normal bulb.? A 10 mm polyp/nodule in the medial wall of proximal descending duodenum (tubular adenoma on previous biopsies). Polyp was raised with 3 cc of normal saline and removed with a hot snare. Polypectomy site was marked by rajat ink Intervention: Biopsies as noted above COLONOSCOPY PROCEDURE NOTE Consent: Indications for the procedure and potential complications of bleeding, perforation, reaction to medications and missed diagnosis were discussed with the patient and informed consent was obtained. Instrument: Olympus CF H 190 L variable stiffness adult colonoscope Monitoring: Vital signs and clinical assessment, intermittent blood pressure monitoring, continuous EKG monitoring, Pulse oximetry and Carbon Dioxide monitoring were done throughout the procedure. Colon withdrawl time was 25 minutes. Procedure: The patient was placed in the left lateral decubitis position and pre-procedure medications were administered. After a digital rectal examination of the ano-rectum, the video colonoscope was inserted into the rectum and advanced through the colon to the cecum. The colonoscope was slowly withdrawn in a retrograde panoramic fashion and the colon mucosa was carefully examined including a retroflexed view of the rectum. Findings and interventions are described below. Procedure Difficulty: : Without difficulty Findings: Terminal Ileum: Distal 5 cms was examined and appeared normal Cecum: A 7-8 mm sessile polyp removed with a cold snare Ascending Colon: Normal Transverse Colon: Normal Descending Colon: Moderate diverticulosis Sigmoid Colon: Moderate diverticulosis Rectum: A few 5 to 10 mm diminutive appearing polyps - two were biopsied. Ano-rectum: Moderate internal hemorrhoids Colon preparation: Excellent Impression and Post Procedure Diagnosis: Endoscopy Findings: ESOPHAGUS: 1 cms tongue of possible Orellana's - No Orellana's on biopsies obtained during last EGD. STOMACH: A few gastric polyps - fundic gland polyps on past biopsies DUODENUM: A 10 mm polyp/nodule in the medial wall of proximal descending duodenum (tubular adenoma on previous biopsies). Polyp was raised with 3 cc of normal saline and removed with a hot snare. Polypectomy site was marked by rajat ink Colonoscopy Findings: One small polyp removed A few 5 to 10 mm diminutive appearing polyps - two were biopsied. Moderate diverticulosis seen in the left colon Moderate hemorrhoids on retroflexed exam. Plan: Await pathology results Patient has an appointment on 05/19/23 in the GI Clinic with Tami Garland M.D. Repeat Colonoscopy interval based on path results - in 2- 3 years if polyps are adenomatous and for IBD surveillance Above findings were reviewed with the patient and colon polyps and diverticulosis handouts were given in the discharge area BIOPSIES SHOWED: A- Duodenal polyp - Clinically polypoid duodenal mucosa with mild surface hyperplastic changes and thermal artifact.? B- Cecal polyp - Tubular adenoma; negative for high-grade dysplasia or carcinoma. C- Cecal BX r/o dysplasia - Colonic mucosa within normal limits. D- Ascending colon BX r/o dysplasia (methylene blue irrigation used on tissue) - Colonic mucosa within normal limits. E- Transverse colon BX r/o dysplasia (methylene blue irrigation used on tissue) - Colonic mucosa within normal limits. F- Descending colon BX r/o dysplasia (methylene blue irrigation used on tissue)- Colonic mucosa within normal limits. G- Sigmoid colon BX r/o dysplasia (methylene blue irrigation used on tissue) - Colonic mucosa within normal limits. H- Rectal BX r/o dysplasia (methylene blue irrigation used on tissue) - Rectal mucosa within normal limits. I- Rectal polyp - Hyperplastic mucosal polyp. ? COMMENT:? No dysplasia is seen outside the adenoma in the cecum.
[2023-04-26 13:52] VITALS: BP 128/76; PULSE 69; RESP 16; TEMP 37.2; O2SAT 97
[2023-04-26 14:07] VITALS: BP 120/69; PULSE 52; RESP 14; O2SAT 95
[2023-04-26 14:14] VITALS: BP 149/95; PULSE 84; RESP 16; TEMP 37.2; O2SAT 97
== END 2023-04-26 14:43 | disposition home or self-care (01) ==
PROVIDERS: PCP Nurse Practitioner Family; Visit Provider Internal Medicine Gastroenterology
PROC: (CPT 45385; principal; 2023-04-26 12:40)
DX: Z12.11 Encounter for screening for malignant neoplasm of colon (principal); D12.0 Benign neoplasm of cecum; K63.5 Polyp of colon; K62.1 Rectal polyp; K57.30 Diverticulosis of large intestine without perforation or abscess without bleeding; K64.8 Other hemorrhoids; K31.7 Polyp of stomach and duodenum; K21.9 Gastro-esophageal reflux disease without esophagitis; K51.30 Ulcerative (chronic) rectosigmoiditis without complications; Z79.899 Other long term (current) drug therapy
CPT/HCPCS: 45385; 45380; 43239; 88305; J2250; Q9968

== ENCOUNTER → 2023-04-26 10:31 | Outpatient (BNV) | payer OTHER, SELFPAY | PROVIDERS: PCP Nurse Practitioner Family; Visit Provider Internal Medicine Gastroenterology | DX: K31.7 Polyp of stomach and duodenum (principal); K62.1 Rectal polyp; K64.8 Other hemorrhoids; K63.5 Polyp of colon; K57.30 Diverticulosis of large intestine without perforation or abscess without bleeding | CPT/HCPCS: 43239; 45381; 45385 ==

== ENCOUNTER 2023-05-17 06:57 | Outpatient (REF) | payer OTHER, SELFPAY ==
[2023-05-17 07:09] LABS: MANUAL DIFF FLAG NO
[2023-05-17 07:20] LABS: Basophils Percent Auto 0.5 % (0-2); Eosinophils Absolute Auto 0.3 X10*3/uL (0.0-0.4); Eosinophils Percent Auto 5.1 % (0-4); Hematocrit 43.5 % (42.0-52.0); Imm Gran Abs Auto 0.01 X10*3/uL (0.00-0.03); Imm Gran Pct Auto 0.2 % (0.0-0.4); Lymphocytes Percent Auto 33.8 % (20-40); Mean Corpuscular HGB Conc 34.5 g/dl (31.0-36.0); Mean Corpuscular Hemoglobin 33.8 pg (27.0-33.0); Monocytes Absolute Auto 0.5 X10*3/uL (0.1-1.2); Monocytes Percent Auto 7.6 % (2-11); Neutrophils Absolute Auto 3.1 x10*3/uL (2.0-8.3); Neutrophils Percent Auto 52.8 % (45-73); Platelet Count 188 X10*3/uL (160-400); Red Blood Count 4.44 X10*6/uL (4.60-5.80); Red Cell Distribution Width 12.2 % (11.0-16.0); White Blood Count 5.9 X10*3/uL (4.8-10.8)
[2023-05-17 07:34] LABS: Alanine Aminotransferase 26 U/L (0-40); Albumin Level 4.2 g/dL (3.5-5.0); Alkaline Phosphatase 86 U/L (39-117); Aspartate Amino Transferase 20 U/L (5-37); Bilirubin Direct 0.2 mg/dL (0.0-0.5); Bilirubin Total 0.7 mg/dL (0.0-1.0); Estimated Glomerular Filt Rate > 60; Total Protein 6.7 g/dL (6.5-8.0)
== END 2023-05-17 06:58 | disposition home or self-care (01) ==
LOC: HO.LAB 06:57
PROVIDERS: PCP Nurse Practitioner Family; Visit Provider Internal Medicine Gastroenterology
DX: K51.30 Ulcerative (chronic) rectosigmoiditis without complications (principal)
CPT/HCPCS: 36415; 80076; 82565; 85025; 86140

== ENCOUNTER 2023-05-19 07:27 | Outpatient (AMB) | payer OTHER, SELFPAY ==
--- NOTE | 2023-05-19 07:35 | A.OFFVIS_ITS ---
Intake Vital Signs 05/19/23 07:41 Height 6 ft 4 in Weight 255 lb BMI 31.0 BP 152/101 H Blood Pressure Location Lt brachial Position Sitting Pulse 76 Intake Visit Reasons: 6 month fu Intake Note: Patient follow up for Colonoscopy results Patient denies any GI issues. Behavior Clinician Required: No Allergies pollen extracts [POLLEN] Allergy (Unknown, Verified 05/19/23 07:38) CONGESTED scallops Allergy (Unknown, Uncoded 04/12/23 14:09) throat swelling and itch Medication List - Last Reconciled 05/19/23 by Tami Garland MD fluticasone propionate 50 mcg/actuation (Flonase Allergy Relief) 1 spray intranasal DAILY omeprazole 20 mg PO BID 90 days HPI 6 month fu HPI Details GI clinic visit for this 42-year-old male for follow-up of Crohn's dise ase. Patient has been followed by Dr. Wilson since 2010. IMAGING STUDIES:? 05/[address] SCAN SHOWED: Chronic appearing changes rectum and sigmoid colon consistent with chronic inflammatory bowel disease.? No acute inflammatory changes, obstruction or ascites.? Punctate nonobstructing left renal calculi.? No hydronephrosis or perinephric stranding ENDOSCOPIC STUDIES:?04/26/23 EGD AND COLON SHOWED: Endoscopy Findings: ESOPHAGUS: 1 cms tongue of possible Orellana's - No Orellana's on biopsies obtained during last EGD. STOMACH: A few gastric polyps - fundic gland polyps on past biopsies DUODENUM: A 10 mm polyp/nodule in the medial wall of proximal descending duodenum (tubular adenoma on previous biopsies). Polyp was raised with 3 cc of normal saline and removed with a hot snare. Polypectomy site was marked by rajat ink Colonoscopy Findings: One small polyp removed A few 5 to 10 mm diminutive appearing polyps - two were biopsied. Moderate diverticulosis seen in the left colon Moderate hemorrhoids on retroflexed exam. Plan: Repeat Colonoscopy interval based on path results - in 2- 3 years if polyps are adenomatous and for IBD surveillance Above findings were reviewed with the patient and colon polyps and diverticulosis handouts were given in the discharge area BIOPSIES SHOWED: A- Duodenal polyp -??Clinically polypoid duodenal mucosa with mild surface hyperplastic changes and thermal artifact.? B- Cecal polyp - Tubular adenoma; negative for high-grade dysplasia or carcinoma. C- Cecal BX r/o dysplasia - Colonic mucosa within normal limits. D- Ascending colon BX r/o dysplasia (methylene blue irrigation used on tissue) - Colonic mucosa within normal limits. E- Transverse colon BX r/o dysplasia (methylene blue irrigation used on tissue) - Colonic mucosa within normal limits. F- Descending colon BX r/o dysplasia (methylene blue irrigation used on tissue)- Colonic mucosa within normal limits. G- Sigmoid colon BX r/o dysplasia (methylene blue irrigation used on tissue) -? Colonic mucosa within normal limits. H- Rectal BX r/o dysplasia (methylene blue irrigation used on tissue) -? Rectal mucosa within normal limits. I- Rectal polyp - Hyperplastic mucosal polyp. ? COMMENT:? No dysplasia is seen outside the adenoma in the cecum. 07/26/22 EGD AND COLON SHOWED: ESOPHAGUS: GE junction at 42 cms. No esophagitis. 1 cms tongue of possible Orellana's - biopsied STOMACH: A few 1 to 1.5 cms benign appearing polyps in the gastric body - biopsied. Mild gastric erythema. Biopsies were obtained. DUODENUM: Normal bulb.? A 10 mm polyp/nodule in the medial wall of proximal descending duodenum - biopsied. Colonoscopy Findings:? No polyps were detected. Inactive colitis in the left colon - random biopsies were obtained. Moderate diverticulosis seen in the left colon Moderate hemorrhoids on retroflexed exam. Plan:? Repeat Colonoscopy interval based on path results - in 1-2 years if no dysplasia seen on biopsies. Colon polyps and diverticulosis handouts were given in the discharge area 06/2017 [address] WILSON AND SHOWED: There was suggestion of mild hyperemia, friability, and thinning of mucosa from rectum to sigmoid colon. Mildly hypervascular areas were noted through descending, transverse, and ascending colon, down into the cecal cap. Appendiceal orifice was seen. Ileocecal valve was seen. Due to redundancy loop in the sigmoid, we are unable to hold position to intubate the terminal ileum. On slow withdrawal of the scope, random right colon biopsies were obtained. From 80 cm to 50 cm to include to the distal descending colon, biopsies were obtained and then rectosigmoid biopsies were obtained. Anorectal verge is clear. BIOPSIES SHOWED: A.? COLON, RIGHT, BIOPSIES:? FRAGMENTS OF UNREMARKABLE COLONIC MUCOSA. B.? COLON, DESCENDING, BIOPSIES:? FRAGMENTS OF UNREMARKABLE COLONIC MUCOSA WITH UNDERLYING LYMPHOID AGGREGATES. C.? RECTOSIGMOID, BIOPSIES:? FRAGMENTS OF UNREMARKABLE COLONIC MUCOSA TODAY'S VISIT: EGD and colon results were reviewed. Stopped taking his medications for UC since April, and has been doing well. Started drinking the Kambucha since Sep, 2022 and denies any rectal bleeding since. Continues to take the Omeprazole once a day - takes for 3 days, does not take it on weekends. Intermittent BRBPR 1-2 days every 2 weeks. Blood is separate from the stools. Does not want to use a cream or a suppository. Taking Omeprazole once a day and 2nd prn if he eats any irritating foods Has 1-2 solid BMs in the morning. 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 No rectal bleeding recently Planning to take several trips to go camping with his 8 yr old daughter over the summer. PAST VISIT: Pt states Last week I had a little bit of bleeding. It usually happens 2/3 days every 6 months where it happens and it is nothing serious but it is better now! I don't really have stomach pains, usually just when something needs to be emptied. Doing well, had a little bit of blood last week - has it every 6 months usually self limited and related to diet. Takes Omeprazole for heartburn. Patient denies symptoms of dysphagia, nausea, vomiting, change in appetite or weight.? Wt fluctuates betweeen 245 to 250 lbs. Has 2-3 normal BMs a day - twice in the morning related to diet - occasionally soft. Denies recent change in bowel habits, constipation, diarrhea, black stools.. Patient denies major cardiac or pulmonary problems, loud snoring or sleep apnea Denies problems with anesthesia in the past. Denies being on chronic anticoagulation. Patient denies known family history of IBD, colon polyps, colon cancer or other GI malignancies. FH of testicular and lung cancer. IBD SUMMARY YEAR OF DIAGNOSIS: ?2010/ 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 WILSON AND SHOWED: There was suggestion of mild hyperemia, friability, and thinning of mucosa from rectum to sigmoid colon. Mildly hypervascular areas were noted through descending, transverse, and ascending colon, down into the cecal cap. Appendiceal orifice was seen. Ileocecal valve was seen. Due to redundancy loop in the sigmoid, we are unable to hold position to intubate the terminal ileum. On slow withdrawal of the scope, random right colon biopsies were obtained. From 80 cm to 50 cm to include to the distal descending colon, biopsies were obtained and then rectosigmoid biopsies were obtained. Anorectal verge is clear. BIOPSIES SHOWED: A.? COLON, RIGHT, BIOPSIES:? FRAGMENTS OF UNREMARKABLE COLONIC MUCOSA. B.? COLON, DESCENDING, BIOPSIES:? FRAGMENTS OF UNREMARKABLE COLONIC MUCOSA WITH UNDERLYING LYMPHOID AGGREGATES. C.? RECTOSIGMOID, BIOPSIES:? FRAGMENTS OF UNREMARKABLE COLONIC MUCOSA NEXT COLON DUE: 2021 EXTRAINTESTINAL MANIFESTATIONS: Joint pains affecting both hands GI SURGERY:? None PAST TREATMENTS:? Asacol HD CURRENT THERAPY:? Lialda 1.2 gm - 4 tablets daily, Mercaptopurine 100 mg daily VACCINATIONS: Flu shot: Does not get flu shot every year Hep A/B serology /vaccination:? ? TB screen: None PFSH Medical History GERD (gastroesophageal reflux disease) Ulcerative proctosigmoiditis Surgical History History of appendectomy History of colonoscopy History of esophagogastroduodenoscopy (EGD) History of hernia repair Family History Father Family history of high blood pressure Mother Family history of high blood pressure Sister Substance use disorder Social History Housing: House Alcohol intake: current Alcohol intake frequency: a few times a month Alcohol type: beer, wine and hard liquor Patient Tobacco Use Status: Never used Tobacco e-Cigarette/Vaping Use: Never Used service: No Current occupational status: employed Cognitive needs: No Hearing needs: No Vision needs: No Review of Systems Const All systems reviewed & are unremarkable except as noted in HPI and below Physical Exam Vital Signs: Last Vital Signs Pulse 76 05/19/23 07:41 BP 152/101 H 05/19/23 07:41 BMI result Body Mass Index 31.0 Const General: healthy appearing and no acute distress Nutritional Appearance: obese Orientation/consciousness: patient oriented x3 Limitations: no limitations HEENT Head: Yes normal to inspection Ears: hearing grossly normal bilaterally Eyes Sclerae: sclerae normal Pupils: Equal, round and reactive pupils present Neck Neck: Yes normal visual inspection Chest Chest palpation & inspection: normal inspection of the chest Resp Effort & Inspection: normal respiratory effort Auscultation: clear to auscultation bilaterally Cardio Palpation: normal PMI Rate: regular rate Rhythm: regular rhythm Heart sounds: S1 normal heart sound present, S2 normal heart sound present and no murmurs GI Palpation (GI): Soft to palpation, nontender and No hepatosplenomegaly present Auscultation: normal bowel sounds Rectal Exam - Male: Yes deferred Skin General skin exam: no rashes or lesions noted Neuro General: patient oriented x3, gait normal and moves all extremities Cranial nerves: Yes Equal, round and reactive pupils present Psych Appearance: grossly normal Mental Status: mental status grossly normal Assessment & Plan Assessment & Plan (1) GERD (gastroesophageal reflux disease): Code(s): K21.9 - Gastro-esophageal reflux disease without esophagitis Qualifiers: Esophagitis presence: without esophagitis Qualified Code(s): K21.9 - Gastro-esophageal reflux disease without esophagitis (2) Ulcerative proctosigmoiditis: Code(s): K51.30 - Ulcerative (chronic) rectosigmoiditis without complications Qualifiers: Digestive disease complication type: without complication Qualified Code(s): K51.30 - Ulcerative (chronic) rectosigmoiditis without complications Plan 42 YM with left sided UC diagnosed 15 yrs ago.? Symptoms controlled with Lialda 4.8 grams and Mercaptopurine 100 mg daily with occasional self limited episodes of rectal bleeding. He denies any extraintestinal manifestation. Patient was advised to continue above medications. He is overdue for follow-up labs - and advised to have labs checked. Hepatitis serologies were negative - Hep A and B vaccination - completed 07/2022 EGD and repeat colonoscopy was performed and results as noted above. 04/2023 EGD and Colonoscopy were performed and findings as noted above 05/19/23 Pt stoppes mesalamine and azathioprine in Apr, 2022 and denies recurrent symptoms since. Patient was advised to monitor his symptoms and call the GI clinic for a follow- up appointment if he notes symptoms of diarrhea or rectal bleeding. Follow-up appointment in 1 year (pt advised to call to schedule an earlier appt if he notes recurrent symptoms). Medications: Refilled omeprazole 20 mg PO BID 90 days 180 caps 1RF K21.9 - Gastro-esophageal reflux disease without esophagitis Coding Level of Care Code Est Pt Level 4 (43099) Diagnoses GERD (gastroesophageal reflux disease) K21.9 Esophagitis presence: without esophagitis Ulcerative proctosigmoiditis K51.30 Digestive disease complication type: without complication Time Spent (min) 23
[2023-05-19 07:41] VITALS: BP 152/101; PULSE 76; BMI 31.0
== END 2023-05-19 08:01 | disposition home or self-care (01) ==
PROVIDERS: PCP Nurse Practitioner Family; Visit Provider Internal Medicine Gastroenterology
DX: K21.9 Gastro-esophageal reflux disease without esophagitis (principal); K51.30 Ulcerative (chronic) rectosigmoiditis without complications
CPT/HCPCS: 99214

== ENCOUNTER → 2023-05-19 07:27 | Outpatient (BNVA) | payer OTHER, SELFPAY | PROVIDERS: PCP Nurse Practitioner Family; Visit Provider Internal Medicine Gastroenterology ==

== ENCOUNTER 2023-09-20 13:19 | Outpatient (AMB) | payer OTHER, SELFPAY ==
--- NOTE | 2023-09-20 13:23 | A.OFFPC_ITS ---
Vital Signs 09/20/23 13:30 09/20/23 13:48 Height 6 ft 4 in Weight 256 lb BMI 31.2 BP 144/80 H 136/70 Blood Pressure Location Lt brachial Lt brachial Position Sitting Sitting Pulse 77 Pulse Source Pulse Oximeter Pulse Oximetry (%) 98 Oxygen Delivery Method Room Air Intake Visit Reasons: Annual PE Intake Note: Pt is here today for his PE Allergies pollen extracts [POLLEN] Allergy (Unknown, Verified 09/20/23 13:26) CONGESTED scallops Allergy (Unknown, Uncoded 09/20/23 13:26) throat swelling and itch Tobacco use date assessed: 09/20/23 Dental Screening Dental Screen Date: 09/20/23 Did you have a dental visit in the last 12 months?: Yes Did you have a dental problem in the last 6 months where you did not have access to dental care?: No Was dental information given to patient?: Patient has dentist HPI Annual PE HPI Details Pt is here for PE. HTN: Will have him take his BP at home, drop off values. Pt has a GI provider already [facility] Medical History (Updated 09/20/23 @ 13:41 by ERICK Grewal) GERD (gastroesophageal reflux disease) Ulcerative proctosigmoiditis Surgical History History of esophagogastroduodenoscopy (EGD) History of appendectomy History of hernia repair History of colonoscopy Family History Father Family history of high blood pressure Mother Family history of high blood pressure Sister Substance use disorder Social History Housing: House Alcohol intake: current Alcohol intake frequency: a few times a month Alcohol type: beer, wine and hard liquor Patient Tobacco Use Status: Never used Tobacco e-Cigarette/Vaping Use: Never Used service: No Current occupational status: employed Cognitive needs: No Hearing needs: No Vision needs: No Questionnaire PHQ-9 Over the last 2 weeks, how often have you been bothered by any of the following problems? 56055 - PHQ-9 Billing: Patient declined-do not bill Source: Developed by Drs. Barbara Martin Kurt Kroenke and colleagues, with an educational jordana from [employer]. Thrive Questionnaire Date Thrive assessed: 09/20/23 I am a: Patient What is your living situation today?: I have a steady place to live Within the past 12 months, did the food you bought not last and you didn't have the money to get more?: Never true Within the past 12 months, did you worry whether your food would run out before you got money to buy more?: Never true Do you have trouble paying for medicines?: No Do you have trouble getting transportation to medical appointments?: No Do you have trouble paying your heating and electricity bill?: No Do you have trouble taking care of your child, family member or friend?: No Do you have trouble with day-to-day activities such as bathing, preparing meals, shopping, managing finances, etc.?: No Are you currently unemployed and looking for a job?: No Are you interested in more education?: No Currently or been in a relationship where the following occur: no concerns reported AUDIT C Alcohol Use Questionnaire (AUDIT-C) 1. How often do you have a drink containing alcohol?: 2-4 times a month 2. How many drinks containing alcohol do you have on a typical day when you are drinking?: 10 or more 3. How often do you have six or more drinks on one occasion?: Monthly Total Score: 8 Score Reviewed/Action Taken: Yes ANDREIA-7 AMB Questionnaire ANDREIA-7 Date ANDREIA - 7 assessed: 09/20/23 Source: Developed by Drs. Marcelino García, Rob Edwards and colleagues, with an educational jordana from [employer]. ANDREIA-7 Assessment Billing ANDREIA-7 Assessment Tool: pt declined-do not bill Review of Systems Const Denies chills and Denies fever(s) Eyes Denies blurry vision ENT Denies vertigo, Denies dizziness and Denies sore throat Card Denies chest pain at rest, Denies chest pain with activity, Denies diaphoresis, Denies dyspnea and Denies dyspnea on exertion Resp Denies cough, Denies dyspnea, Denies dyspnea on exertion and Denies wheezing GI Denies abdominal pain, Denies melena, Denies hematochezia, Denies constipation, Denies diarrhea and Denies loose stools Denies hematuria Musc Denies numbness and Denies tingling Skin/Breast Denies lesions Neuro Denies vertigo, Denies dizziness, Denies numbness and Denies tingling Psych Denies anxiety, Denies depression, Denies homicidal ideation, Denies suicidal ideation and Denies other (substance abuse) Aller/Immun Denies wheezing Physical exam (Primary Care) Vital Signs: Last Vital Signs Pulse 77 09/20/23 13:30 BP 144/80 H 09/20/23 13:30 Pulse Ox 98 09/20/23 13:30 Oxygen Delivery Method Room Air 09/20/23 13:30 BMI result Body Mass Index 31.2 Tobacco/Smoking Status: Tobacco use Status Tobacco use date assessed 09/20/23 09/20/23 13:26 Patient Tobacco Use Status Never used Tobacco 09/20/23 13:26 e-Cigarette/Vaping Use Never Used 09/20/23 13:26 Thrive Assessment: Date of Thrive Assessment Date Thrive assessed 09/20/23 09/20/23 13:26 Currently or been in a relationship where the following occur: no concerns reported Const General: cooperative Nutritional Appearance: well nourished Orientation/consciousness: patient oriented x3 HENMT Head: Yes normal to inspection, Yes normocephalic and Yes atraumatic Ears: TM normal on the right and TM normal on the left Eyes General: appearance normal, both eyes and all related structures Alignment and Position: alignment normal and position normal Neck Neck: Yes normal visual inspection and Yes no lymphadenopathy Resp Effort & Inspection: normal respiratory effort Auscultation: clear to auscultation bilaterally Cardio Rate: regular rate Rhythm: regular rhythm Heart sounds: S1 normal heart sound present, S2 normal heart sound present and no murmurs GI Palpation (GI): Soft to palpation and nontender Auscultation: normal bowel sounds Male General Exam: Yes normal external exam Penis: normal penis Scrotum: scrotum normal, testes descended bilaterally and no inguinal hernias Testes: no testicular mass Skin Rashes: no rashes Neuro General: patient oriented x3, moves all extremities, no focal motor deficits and deep tendon reflexes 2+ bilaterally Romberg Test: Negative Extrem Right lower extremity: no edema Left lower extremity: no edema Psych Affect: normal affect Attitude: cooperative Thought process: Normal thought process present Assessment and Plan Assessment & Plan (1) Physical exam: Code(s): Z00.00 - Encounter for general adult medical examination without abnormal findings (2) HTN (hypertension): Code(s): I10 - Essential (primary) hypertension Plan: pt will drop off values from home in the near future Orders: Orders TSH reflex Free T4 Today Z00.00 - Encounter for general adult medical examination without abnormal findings UA CC w/rflx Micro + Cult Today Z00.00 - Encounter for general adult medical examination without abnormal findings Lipid Panel Today Z00.00 - Encounter for general adult medical examination without abnormal findings Complete Blood Count Auto Diff Today Z00.00 - Encounter for general adult medical examination without abnormal findings Comprehensive [place]. Panel Fast Today Z00.00 - Encounter for general adult medical examination without abnormal findings Coding Level of Care Code Est Pt Prev Care 40-64y(16008) Diagnoses Physical exam Z00.00 HTN (hypertension) I10
[2023-09-20 13:30] VITALS: BP 144/80; PULSE 77; O2SAT 98; BMI 31.2
[2023-09-20 13:48] VITALS: BP 136/70
== END 2023-09-20 13:50 | disposition home or self-care (01) ==
PROVIDERS: PCP Nurse Practitioner Family; Visit Provider Nurse Practitioner Family
DX: Z00.00 Encounter for general adult medical examination without abnormal findings (principal); I10 Essential (primary) hypertension
CPT/HCPCS: 99396

== ENCOUNTER 2024-07-12 11:24 | Outpatient (AMB) | payer OTHER, SELFPAY ==
--- NOTE | 2024-07-12 11:29 | MHC.OFFVIS ---
Vital Signs 07/12/24 11:30 Height 6 ft 4 in Weight 262 lb BMI 31.9 BP 120/70 Blood Pressure Location Lt brachial Position Sitting Pulse 96 Intake Visit Reasons: 1yr f/u for ulcerative colitis Intake Note: Patient yearly follow up for Ulcerative Colitis and GERD. Patient denies any GI issues. 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 Patient has been followed by Dr. Wilson since 2010. IMAGING STUDIES:? 05/[address] SCAN SHOWED: Chronic appearing changes rectum and sigmoid colon consistent with chronic inflammatory bowel disease.? No acute inflammatory changes, obstruction or ascites.? Punctate nonobstructing left renal calculi.? No hydronephrosis or perinephric stranding ENDOSCOPIC STUDIES:?04/26/23 EGD AND COLON SHOWED: Endoscopy Findings: ESOPHAGUS: 1 cms tongue of possible Orellana's - No Orellana's on biopsies obtained during last EGD. STOMACH: A few gastric polyps - fundic gland polyps on past biopsies DUODENUM: A 10 mm polyp/nodule in the medial wall of proximal descending duodenum (tubular adenoma on previous biopsies). Polyp was raised with 3 cc of normal saline and removed with a hot snare. Polypectomy site was marked by rajat ink Colonoscopy Findings: One small polyp removed A few 5 to 10 mm diminutive appearing polyps - two were biopsied. Moderate diverticulosis seen in the left colon Moderate hemorrhoids on retroflexed exam. Plan: Repeat Colonoscopy interval based on path results - in 2- 3 years if polyps are adenomatous and for IBD surveillance Above findings were reviewed with the patient and colon polyps and diverticulosis handouts were given in the discharge area BIOPSIES SHOWED: A- Duodenal polyp -??Clinically polypoid duodenal mucosa with mild surface hyperplastic changes and thermal artifact.? B- Cecal polyp - Tubular adenoma; negative for high-grade dysplasia or carcinoma. C- Cecal BX r/o dysplasia - Colonic mucosa within normal limits. D- Ascending colon BX r/o dysplasia (methylene blue irrigation used on tissue) - Colonic mucosa within normal limits. E- Transverse colon BX r/o dysplasia (methylene blue irrigation used on tissue) - Colonic mucosa within normal limits. F- Descending colon BX r/o dysplasia (methylene blue irrigation used on tissue)- Colonic mucosa within normal limits. G- Sigmoid colon BX r/o dysplasia (methylene blue irrigation used on tissue) -? Colonic mucosa within normal limits. H- Rectal BX r/o dysplasia (methylene blue irrigation used on tissue) -? Rectal mucosa within normal limits. I- Rectal polyp - Hyperplastic mucosal polyp. COMMENT:? No dysplasia is seen outside the adenoma in the cecum. 07/26/22 EGD AND COLON SHOWED: ESOPHAGUS: GE junction at 42 cms. No esophagitis. 1 cms tongue of possible Orellana's - biopsied STOMACH: A few 1 to 1.5 cms benign appearing polyps in the gastric body - biopsied. Mild gastric erythema. Biopsies were obtained. DUODENUM: Normal bulb.? A 10 mm polyp/nodule in the medial wall of proximal descending duodenum - biopsied. Colonoscopy Findings:? No polyps were detected. Inactive colitis in the left colon - random biopsies were obtained. Moderate diverticulosis seen in the left colon Moderate hemorrhoids on retroflexed exam. Plan:? Repeat Colonoscopy interval based on path results - in 1-2 years if no dysplasia seen on biopsies. Colon polyps and diverticulosis handouts were given in the discharge area 06/2017 [address] PERFOR[address] BY [address] WILSON AND SHOWED: There was suggestion of mild hyperemia, friability, and thinning of mucosa from rectum to sigmoid colon. Mildly hypervascular areas were noted through descending, transverse, and ascending colon, down into the cecal cap. Appendiceal orifice was seen. Ileocecal valve was seen. Due to redundancy loop in the sigmoid, we are unable to hold position to intubate the terminal ileum. On slow withdrawal of the scope, random right colon biopsies were obtained. From 80 cm to 50 cm to include to the distal descending colon, biopsies were obtained and then rectosigmoid biopsies were obtained. Anorectal verge is clear. BIOPSIES SHOWED: A.? COLON, RIGHT, BIOPSIES:? FRAGMENTS OF UNREMARKABLE COLONIC MUCOSA. B.? COLON, DESCENDING, BIOPSIES:? FRAGMENTS OF UNREMARKABLE COLONIC MUCOSA WITH UNDERLYING LYMPHOID AGGREGATES. C.? RECTOSIGMOID, BIOPSIES:? FRAGMENTS OF UNREMARKABLE COLONIC MUCOSA TODAY'S VISIT: On no medications for the past 2 years. Has 1-2 BMs in a day - not loose Occasionally notes BRBPR 1-2 times every few months - attributes to hemorrhoids EGD and colon results were reviewed. Stopped taking his medications for UC since April, and has been doing well. Started drinking the Kambucha since Sep, 2022 and denies any rectal bleeding since. Continues to take the Omeprazole once a day - takes for 3 days, does not take it on weekends. Heartburn has been better - taking some time off from work - attributes to decreased stress Intermittent BRBPR 1-2 days every 2 weeks. Blood is separate from the stools. Does not want to use a cream or a suppository. Taking Omeprazole once a day and 2nd prn if he eats any irritating foods Has 1-2 solid BMs in the morning. 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 No rectal bleeding recently Planning to take several trips to go camping with his 8 yr old daughter over the summer. PAST VISIT: Pt states Last week I had a little bit of bleeding. It usually happens 2/3 days every 6 months where it happens and it is nothing serious but it is better now! I don't really have stomach pains, usually just when something needs to be emptied. Doing well, had a little bit of blood last week - has it every 6 months usually self limited and related to diet. Takes Omeprazole for heartburn. Patient denies symptoms of dysphagia, nausea, vomiting, change in appetite or weight.? Wt fluctuates betweeen 245 to 250 lbs. Has 2-3 normal BMs a day - twice in the morning related to diet - occasionally soft. Denies recent change in bowel habits, constipation, diarrhea, black stools.. Patient denies major cardiac or pulmonary problems, loud snoring or sleep apnea Denies problems with anesthesia in the past. Denies being on chronic anticoagulation. Patient denies known family history of IBD, colon polyps, colon cancer or other GI malignancies. FH of testicular and lung cancer. IBD SUMMARY YEAR OF DIAGNOSIS: ?2010/ 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 WILSON AND SHOWED: There was suggestion of mild hyperemia, friability, and thinning of mucosa from rectum to sigmoid colon. Mildly hypervascular areas were noted through descending, transverse, and ascending colon, down into the cecal cap. Appendiceal orifice was seen. Ileocecal valve was seen. Due to redundancy loop in the sigmoid, we are unable to hold position to intubate the terminal ileum. On slow withdrawal of the scope, random right colon biopsies were obtained. From 80 cm to 50 cm to include to the distal descending colon, biopsies were obtained and then rectosigmoid biopsies were obtained. Anorectal verge is clear. BIOPSIES SHOWED: A.? COLON, RIGHT, BIOPSIES:? FRAGMENTS OF UNREMARKABLE COLONIC MUCOSA. B.? COLON, DESCENDING, BIOPSIES:? FRAGMENTS OF UNREMARKABLE COLONIC MUCOSA WITH UNDERLYING LYMPHOID AGGREGATES. C.? RECTOSIGMOID, BIOPSIES:? FRAGMENTS OF UNREMARKABLE COLONIC MUCOSA NEXT COLON DUE: 2021 EXTRAINTESTINAL MANIFESTATIONS: Joint pains affecting both hands GI SURGERY:? None PAST TREATMENTS:? Asacol HD CURRENT THERAPY:? Lialda 1.2 gm - 4 tablets daily, Mercaptopurine 100 mg daily VACCINATIONS: Flu shot: Does not get flu shot every year Hep A/B serology /vaccination:? ? TB screen: None [facility] Medical History (Updated 09/20/23 @ 13:41 by Maurilio Valente [facility]) GERD (gastroesophageal reflux disease) Ulcerative proctosigmoiditis Surgical History History of esophagogastroduodenoscopy (EGD) History of appendectomy History of hernia repair History of colonoscopy Family History Father Family history of high blood pressure Mother Family history of high blood pressure Sister Substance use disorder Social History Housing: House Alcohol intake: current Alcohol intake frequency: a few times a month Alcohol type: beer, wine and hard liquor Patient Tobacco Use Status: Never used Tobacco e-Cigarette/Vaping Use: Never Used service: No Current occupational status: employed Cognitive needs: No Hearing needs: No Vision needs: No Review of Systems Const Denies fever(s), Denies headache(s), Reports weight gain and Denies weight loss Eyes Denies eye discharge and Denies irritation ENT Reports Normal hearing present, Denies dysphagia, Denies dizziness and Denies headache(s) Card Denies chest pain, Denies leg edema and Denies dyspnea on exertion Resp Denies cough, Denies dyspnea on exertion and Denies wheezing GI Denies abdominal pain, Denies change in bowel habits, Denies dysphagia and Denies heartburn Denies dysuria Musc Denies back pain and Denies arthralgias Skin/Breast Denies pruritus, Denies rash and Denies jaundice Neuro Reports Normal hearing present, Denies Abnormal speech present, Denies dizziness, Denies headache(s) and Denies seizure-like activity Psych Denies anxiety, Denies depression and Denies panic attacks Endo Denies cold intolerance, Denies flushing and Denies heat intolerance Parker/Lymph Denies easy bleeding and Denies easy bruising Aller/Immun Denies wheezing Physical Exam Vital Signs: Last Vital Signs Pulse 96 07/12/24 11:30 BP 120/70 07/12/24 11:30 BMI result Body Mass Index 31.9 Const General: healthy appearing and no acute distress Nutritional Appearance: obese Orientation/consciousness: patient oriented x3 Limitations: no limitations HEENT Head: Yes normal to inspection Ears: hearing grossly normal bilaterally Eyes Sclerae: sclerae normal Pupils: Equal, round and reactive pupils present Neck Neck: Yes normal visual inspection Chest Chest palpation & inspection: normal inspection of the chest Resp Effort & Inspection: normal respiratory effort Auscultation: clear to auscultation bilaterally Cardio Palpation: normal PMI Rate: regular rate Rhythm: regular rhythm Heart sounds: S1 normal heart sound present, S2 normal heart sound present and no murmurs GI Palpation (GI): Soft to palpation, nontender and No hepatosplenomegaly present Auscultation: normal bowel sounds Rectal Exam - Male: Yes deferred Skin General skin exam: no rashes or lesions noted Neuro General: patient oriented x3, gait normal and moves all extremities Cranial nerves: Yes Equal, round and reactive pupils present and Yes Normal hearing present Speech: No Abnormal speech present Psych Appearance: grossly normal Mental Status: mental status grossly normal Assessment & Plan Assessment & Plan (1) Ulcerative proctosigmoiditis: Code(s): K51.30 - Ulcerative (chronic) rectosigmoiditis without complications Category: Medical Qualifiers: Digestive disease complication type: without complication Qualified Code(s): K51.30 - Ulcerative (chronic) rectosigmoiditis without complications (2) GERD (gastroesophageal reflux disease): Code(s): K21.9 - Gastro-esophageal reflux disease without esophagitis Category: Medical Qualifiers: Esophagitis presence: without esophagitis Qualified Code(s): K21.9 - Gastro-esophageal reflux disease without esophagitis Plan 44 YM with left sided UC diagnosed 15 yrs ago.? Symptoms controlled with Lialda 4.8 grams and Mercaptopurine 100 mg daily with occasional self limited episodes of rectal bleeding. He denies any extraintestinal manifestation. Patient was advised to continue above medications. He is overdue for follow-up labs - and advised to have labs checked. Hepatitis serologies were negative - Hep A and B vaccination - completed 07/2022 EGD and repeat colonoscopy was performed and results as noted above. 04/2023 EGD and Colonoscopy were performed and findings as noted above 05/19/23 Pt stopped mesalamine and azathioprine in Apr, 2022 and denies recurrent symptoms since. Patient was advised to monitor his symptoms and call the GI clinic for a follow-up appointment if he notes symptoms of diarrhea or rectal bleeding. 07/12/24 Fecal calprotectin to confirm patient is in remission Follow-up appointment in 1 year (pt advised to call to schedule an earlier appt if he notes recurrent symptoms) Orders: Orders Calprotectin, Fecal Today K51.30 - Ulcerative (chronic) rectosigmoiditis without complications Coding Level of Care Code Est Pt Level 3 (07206) Diagnoses Ulcerative rectosigmoiditis without complication K51.30 Digestive disease complication type: without complication Gastroesophageal reflux disease without esophagitis K21.9 Esophagitis presence: without esophagitis Time Spent (min) 18
[2024-07-12 11:30] VITALS: BP 120/70; PULSE 96; BMI 31.9
== END 2024-07-12 12:34 | disposition home or self-care (01) ==
PROVIDERS: PCP Nurse Practitioner Family; Visit Provider Internal Medicine Gastroenterology
DX: K51.30 Ulcerative (chronic) rectosigmoiditis without complications (principal); K21.9 Gastro-esophageal reflux disease without esophagitis
CPT/HCPCS: 99213

== ENCOUNTER → 2024-07-12 11:24 | Outpatient (BNVA) | payer OTHER, SELFPAY | PROVIDERS: PCP Nurse Practitioner Family; Visit Provider Internal Medicine Gastroenterology ==

== ENCOUNTER 2025-07-11 11:43 | Outpatient (AMB) | payer OTHER, SELFPAY ==
[2025-07-11 11:50] VITALS: BP 134/70; PULSE 69; O2SAT 98; BMI 31.6
--- NOTE | 2025-07-11 11:50 | A.OFFVIS_ITS ---
Vital Signs 07/11/25 11:50 Height 6 ft 4 in Weight 260 lb BMI 31.6 BP 134/70 Blood Pressure Location Lt brachial Position Sitting Pulse 69 Pulse Oximetry (%) 98 Oxygen Delivery Method Room Air Intake Visit Reasons: Ulcerative colitis Intake Note: Patient follow up for Ulcerative colitis, No fecal results Patient denies any GI issues. patient needed refill for Omeprazole 20 mg BIB. Accounts Payable Administrator Required: No Accompanied by: Self / Same As Patient Allergies pollen extracts (POLLEN) Allergy (Unknown, Verified 07/11/25 11:49) CONGESTED scallops Allergy (Unknown, Uncoded 09/20/23 13:26) throat swelling and itch Medication List - Last Reconciled 07/11/25 by Tami Garland MD omeprazole 20 mg PO BID 90 days HPI HPI Ulcerative colitis: Details: GI clinic visit for this 45-year-old male for follow-up of Crohn's disease. Patient has been followed by Dr. Wilson since 2010. TODAY'S VISIT: Patient denies any GI issues. patient needed refill for Omeprazole 20 mg BID On no medications for UC over the past 3 years. Has 1-2 BMs in a day - not loose Occasionally notes BRBPR 1-2 times every months - attributes to hemorrhoids Takes TUCKS prn and would like a prescription for hydrocortisone. PAST VISIT: EGD and colon results were reviewed. Stopped taking his medications for UC since April, and has been doing well. Started drinking the Kambucha since Sep, 2022 and denies any rectal bleeding since. Continues to take the Omeprazole once a day - takes for 3 days, does not take it on weekends. Heartburn has been better - taking some time off from work - attributes to decreased stress Intermittent BRBPR 1-2 days every 2 weeks. Blood is separate from the stools. Does not want to use a cream or a suppository. Taking Omeprazole once a day and 2nd prn if he eats any irritating foods Has 1-2 solid BMs in the morning. 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 No rectal bleeding recently Planning to take several trips to go camping with his 8 yr old daughter over the summer. Pt states Last week I had a little bit of bleeding. It usually happens 2/3 days every 6 months where it happens and it is nothing serious but it is better now! I don't really have stomach pains, usually just when something needs to be emptied. Doing well, had a little bit of blood last week - has it every 6 months usually self limited and related to diet. Takes Omeprazole for heartburn. Patient denies symptoms of dysphagia, nausea, vomiting, change in appetite or weight.? Wt fluctuates betweeen 245 to 250 lbs. Has 2-3 normal BMs a day - twice in the morning related to diet - occasionally soft. Denies recent change in bowel habits, constipation, diarrhea, black stools.. Patient denies major cardiac or pulmonary problems, loud snoring or sleep apnea Denies problems with anesthesia in the past. Denies being on chronic anticoagulation. Patient denies known family history of IBD, colon polyps, colon cancer or other GI malignancies. FH of testicular and lung cancer. IBD SUMMARY YEAR OF DIAGNOSIS: ? 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 WILSON AND SHOWED: There was suggestion of mild hyperemia, friability, and thinning of mucosa from rectum to sigmoid colon. Mildly hypervascular areas were noted through descending, transverse, and ascending colon, down into the cecal cap. Appendiceal orifice was seen. Ileocecal valve was seen. Due to redundancy loop in the sigmoid, we are unable to hold position to intubate the terminal ileum. On slow withdrawal of the scope, random right colon biopsies were obtained. From 80 cm to 50 cm to include to the distal descending colon, biopsies were obtained and then rectosigmoid biopsies were obtained. Anorectal verge is clear. BIOPSIES SHOWED: A.? COLON, RIGHT, BIOPSIES:? FRAGMENTS OF UNREMARKABLE COLONIC MUCOSA. B.? COLON, DESCENDING, BIOPSIES:? FRAGMENTS OF UNREMARKABLE COLONIC MUCOSA WITH UNDERLYING LYMPHOID AGGREGATES. C.? RECTOSIGMOID, BIOPSIES:? FRAGMENTS OF UNREMARKABLE COLONIC MUCOSA NEXT COLON DUE: 2021 EXTRAINTESTINAL MANIFESTATIONS: Joint pains affecting both hands GI SURGERY:? None PAST TREATMENTS:? Asacol HD CURRENT THERAPY:? Lialda 1.2 gm - 4 tablets daily, Mercaptopurine 100 mg daily VACCINATIONS: Flu shot: Does not get flu shot every year Hep A/B serology /vaccination:? ? TB screen: None IMAGING STUDIES:? 05/[address] SCAN SHOWED: Chronic appearing changes rectum and sigmoid colon consistent with chronic inflammatory bowel disease.? No acute inflammatory changes, obstruction or ascites.? Punctate nonobstructing left renal calculi.? No hydronephrosis or perinephric stranding ENDOSCOPIC STUDIES:?04/26/23 EGD AND COLON SHOWED: Endoscopy Findings: ESOPHAGUS: 1 cms tongue of possible Orellana's - No Orellana's on biopsies obtained during last EGD. STOMACH: A few gastric polyps - fundic gland polyps on past biopsies DUODENUM: A 10 mm polyp/nodule in the medial wall of proximal descending duodenum (tubular adenoma on previous biopsies). Polyp was raised with 3 cc of normal saline and removed with a hot snare. Polypectomy site was marked by rajat ink Colonoscopy Findings: One small polyp removed A few 5 to 10 mm diminutive appearing polyps - two were biopsied. Moderate diverticulosis seen in the left colon Moderate hemorrhoids on retroflexed exam. Plan: Repeat Colonoscopy interval based on path results - in 2- 3 years if polyps are adenomatous and for IBD surveillance Above findings were reviewed with the patient and colon polyps and diverticulosis handouts were given in the discharge area BIOPSIES SHOWED: A- Duodenal polyp -??Clinically polypoid duodenal mucosa with mild surface hyperplastic changes and thermal artifact.? B- Cecal polyp - Tubular adenoma; negative for high-grade dysplasia or carcinoma. C- Cecal BX r/o dysplasia - Colonic mucosa within normal limits. D- Ascending colon BX r/o dysplasia (methylene blue irrigation used on tissue) - Colonic mucosa within normal limits. E- Transverse colon BX r/o dysplasia (methylene blue irrigation used on tissue) - Colonic mucosa within normal limits. F- Descending colon BX r/o dysplasia (methylene blue irrigation used on tissue)- Colonic mucosa within normal limits. G- Sigmoid colon BX r/o dysplasia (methylene blue irrigation used on tissue) -? Colonic mucosa within normal limits. H- Rectal BX r/o dysplasia (methylene blue irrigation used on tissue) -? Rectal mucosa within normal limits. I- Rectal polyp - Hyperplastic mucosal polyp. COMMENT:? No dysplasia is seen outside the adenoma in the cecum. 07/26/22 EGD AND COLON SHOWED: ESOPHAGUS: GE junction at 42 cms. No esophagitis. 1 cms tongue of possible Orellana's - biopsied STOMACH: A few 1 to 1.5 cms benign appearing polyps in the gastric body - biopsied. Mild gastric erythema. Biopsies were obtained. DUODENUM: Normal bulb.? A 10 mm polyp/nodule in the medial wall of proximal descending duodenum - biopsied. Colonoscopy Findings:? No polyps were detected. Inactive colitis in the left colon - random biopsies were obtained. Moderate diverticulosis seen in the left colon Moderate hemorrhoids on retroflexed exam. Plan:? Repeat Colonoscopy interval based on path results - in 1-2 years if no dysplasia seen on biopsies. Colon polyps and diverticulosis handouts were given in the discharge area 06/2017 COLONOSCOPY WAS PERFORMED BY [address] WILSON AND SHOWED: There was suggestion of mild hyperemia, friability, and thinning of mucosa from rectum to sigmoid colon. Mildly hypervascular areas were noted through descending, transverse, and ascending colon, down into the cecal cap. Appendiceal orifice was seen. Ileocecal valve was seen. Due to redundancy loop in the sigmoid, we are unable to hold position to intubate the terminal ileum. On slow withdrawal of the scope, random right colon biopsies were obtained. From 80 cm to 50 cm to include to the distal descending colon, biopsies were obtained and then rectosigmoid biopsies were obtained. Anorectal verge is clear. BIOPSIES SHOWED: A.? COLON, RIGHT, BIOPSIES:? FRAGMENTS OF UNREMARKABLE COLONIC MUCOSA. B.? COLON, DESCENDING, BIOPSIES:? FRAGMENTS OF UNREMARKABLE COLONIC MUCOSA WITH UNDERLYING LYMPHOID AGGREGATES. C.? RECTOSIGMOID, BIOPSIES:? FRAGMENTS OF UNREMARKABLE COLONIC MUCOSA [facility] Medical History (Updated 07/11/25 @ 12:36 by Tami Garland MD) GERD (gastroesophageal reflux disease) Ulcerative proctosigmoiditis Surgical History History of esophagogastroduodenoscopy (EGD) History of appendectomy History of hernia repair History of colonoscopy Family History Father Family history of high blood pressure Mother Family history of high blood pressure Sister Substance use disorder Social History Housing: House Alcohol intake: current Alcohol intake frequency: a few times a month Alcohol type: beer, wine and hard liquor Patient Tobacco Use Status: Never used Tobacco e-Cigarette/Vaping Use: Never Used service: No Current occupational status: employed Cognitive needs: No Hearing needs: No Vision needs: No Review of Systems Const Denies fever(s), Denies headache(s) and Denies weight loss Eyes Denies eye discharge and Denies irritation ENT Reports Normal hearing present, Denies dysphagia, Denies dizziness and Denies headache(s) Card Denies chest pain, Denies leg edema and Denies dyspnea on exertion Resp Denies cough, Denies dyspnea on exertion and Denies wheezing GI Denies abdominal pain, Denies change in bowel habits, Denies dysphagia and Denies heartburn Denies dysuria Musc Denies back pain and Denies arthralgias Skin/Breast Denies pruritus, Denies rash and Denies jaundice Neuro Reports Normal hearing present, Denies Abnormal speech present, Denies dizziness, Denies headache(s) and Denies seizure-like activity Psych Denies anxiety, Denies depression and Denies panic attacks Endo Denies cold intolerance, Denies flushing and Denies heat intolerance Parker/Lymph Denies easy bleeding and Denies easy bruising Aller/Immun Denies wheezing Physical Exam Vital Signs: Last Vital Signs Pulse 69 07/11/25 11:50 BP 134/70 07/11/25 11:50 Pulse Ox 98 07/11/25 11:50 Oxygen Delivery Method Room Air 07/11/25 11:50 BMI result Body Mass Index 31.6 Const General: healthy appearing and no acute distress Nutritional Appearance: obese Orientation/consciousness: patient oriented x3 Limitations: no limitations HEENT Head: Yes normal to inspection Ears: hearing grossly normal bilaterally Eyes Sclerae: sclerae normal Pupils: Equal, round and reactive pupils present Neck Neck: Yes normal visual inspection Chest Chest palpation & inspection: normal inspection of the chest Resp Effort & Inspection: normal respiratory effort Auscultation: clear to auscultation bilaterally Cardio Palpation: normal PMI Rate: regular rate Rhythm: regular rhythm Heart sounds: S1 normal heart sound present, S2 normal heart sound present and no murmurs GI Palpation (GI): Soft to palpation, nontender and No hepatosplenomegaly present Auscultation: normal bowel sounds Rectal Exam - Male: Yes deferred Skin General skin exam: no rashes or lesions noted Neuro General: patient oriented x3, gait normal and moves all extremities Cranial nerves: Yes Equal, round and reactive pupils present and Yes Normal hearing present Speech: No Abnormal speech present Psych Appearance: grossly normal Mental Status: mental status grossly normal Assessment & Plan Assessment & Plan (1) GERD (gastroesophageal reflux disease): Code(s): K21.9 - Gastro-esophageal reflux disease without esophagitis Category: Medical Qualifiers: Esophagitis presence: without esophagitis Qualified Code(s): K21.9 - Gastro-esophageal reflux disease without esophagitis (2) Ulcerative proctosigmoiditis: Code(s): K51.30 - Ulcerative (chronic) rectosigmoiditis without complications Category: Medical Qualifiers: Digestive disease complication type: without complication Qualified Code(s): K51.30 - Ulcerative (chronic) rectosigmoiditis without complications (3) Hemorrhoids, internal, with bleeding: Code(s): K64.8 - Other hemorrhoids Category: Medical (4) Polyp of duodenum: Code(s): K31.7 - Polyp of stomach and duodenum Category: Medical Plan 45 YM with left sided UC diagnosed 15 yrs ago.? Symptoms controlled with Lialda 4.8 grams and Mercaptopurine 100 mg daily with occasional self limited episodes of rectal bleeding. He denied any extraintestinal manifestation. Patient was advised to continue above medications. He is overdue for follow-up labs - and advised to have labs checked. Hepatitis serologies were negative - Hep A and B vaccination - completed 07/2022 EGD and repeat colonoscopy was performed and results as noted above. 04/2023 EGD and Colonoscopy were performed and findings as noted above 05/19/23 Pt stopped mesalamine and azathioprine in Apr, 2022 and denies recurrent symptoms since. Patient was advised to monitor his symptoms and call the GI clinic for a follow- up appointment if he notes symptoms of diarrhea or rectal bleeding. 07/12/24 Fecal calprotectin to confirm patient is in remission 07/11/25 Occasionally notes BRBPR 1-2 times every months - attributes to hemorrhoids Patient advised to schedule an upper endoscopy (FU of duodenal polyp) and colonoscopy (UC surveillance) Follow-up appointment in 1 year (pt advised to call to schedule an earlier appt if he notes recurrent symptoms) Orders: Orders C Reactive Protein Today K21.9 - Gastro-esophageal reflux disease without esophagitis, K51.30 - Ulcerative (chronic) rectosigmoiditis without complications Complete Blood Count no Diff Today K21.9 - Gastro-esophageal reflux disease wi thout esophagitis, K51.30 - Ulcerative (chronic) rectosigmoiditis without complications Comprehensive Met. Panel Today K21.9 - Gastro-esophageal reflux disease without esophagitis, K51.30 - Ulcerative (chronic) rectosigmoiditis without complications Calprotectin, Fecal Today K21.9 - Gastro-esophageal reflux disease without esophagitis, K51.30 - Ulcerative (chronic) rectosigmoiditis without complications Referrals GI Procedure Notification K21.9 - Gastro-esophageal reflux disease without esophagitis, K31.7 - Polyp of stomach and duodenum, K51.30 - Ulcerative (chronic) rectosigmoiditis without complications Medications: New hydrocortisone-pramoxine 2.5-1 % 1 appl DC BID PRN 30 grams 1RF hemorrhoids 30 days K64.8 - Other hemorrhoids Refilled omeprazole 20 mg PO BID 180 caps 3RF 90 days K21.9 - Gastro-esophageal reflux disease without esophagitis Coding Level of Care Code Est Pt Level 3 (19110) Diagnoses Gastroesophageal reflux disease without esophagitis K21.9 Esophagitis presence: without esophagitis Ulcerative rectosigmoiditis without complication K51.30 Digestive disease complication type: without complication Hemorrhoids, internal, with bleeding K64.8 Polyp of duodenum K31.7 Time Spent (min) 18
== END 2025-07-11 12:33 | disposition home or self-care (01) ==
LOC: HO.HGI 11:44
PROVIDERS: PCP Nurse Practitioner Family; Visit Provider Internal Medicine Gastroenterology
DX: K21.9 Gastro-esophageal reflux disease without esophagitis (principal); K51.30 Ulcerative (chronic) rectosigmoiditis without complications; K64.8 Other hemorrhoids; K31.7 Polyp of stomach and duodenum
CPT/HCPCS: 99213

== ENCOUNTER 2025-07-18 09:57 | Emergency (ER) | payer OTHER, SELFPAY ==
--- NOTE | ~2025-07-18 | XR_ITS ---
EXAMINATION: XR CHEST CLINICAL INFORMATION: Chest pain COMPARISON: April 20, 2018. TECHNIQUE: PA and lateral views FINDINGS: No consolidation, pleural fissure pneumothorax. Cardiomediastinal silhouette size is normal. Mild multilevel spondylosis. XR/XR chest 2V IMPRESSION: No acute airspace disease. Electronically signed by: Peng Ha MD 07/18/2025 10:24 AM EDT
--- NOTE | 2025-07-18 09:58 | ECG_ITS ---
Test Reason : CP/PALPAITATION Blood Pressure : */* mmHG Vent. Rate : 69 BPM Atrial Rate : 69 BPM P-R Int : 148 ms QRS Dur : 94 ms QT Int : 388 ms P-R-T Axes : 54 3 47 degrees QTcB Int : 415 ms Normal sinus rhythm Normal ECG When compared with ECG of 27-Mar-2013 08:07, No significant change was found Referred By: Generic ED Physician Electronically Signed By: CHECO ELIAS
[2025-07-18 10:08] VITALS: BP 156/95; PULSE 71; RESP 16; TEMP 36.6; O2SAT 98; BMI 31.6
--- NOTE | 2025-07-18 10:10 | ED.GENADULT ---
HPI - General Adult General Chief complaint: Chest Pain Stated complaint: chest pain Related Data Previous Rx's ?Medication ?Instructions ?Recorded hydrocortisone-pramoxine 2.5 %-1 % 1 appl [place] BID PRN hemorrhoids 30 07/11/25 rectal cream days #30 grams omeprazole 20 mg capsule,delayed 20 mg PO BID 90 days #180 caps 07/11/25 release Allergies Allergy/AdvReac Type Severity Reaction Status Date / Time pollen extracts (POLLEN) Allergy Unknown CONGESTED Verified 07/18/25 10:10 scallops Allergy Unknown throat Uncoded 07/18/25 10:10 swelling and itch PMFSH Past Medical History Medical History (Updated 07/20/25 @ 23:21 by ALEXANDRE Jimenez) GERD (gastroesophageal reflux disease) Ulcerative proctosigmoiditis Surgical History History of esophagogastroduodenoscopy (EGD) History of appendectomy History of hernia repair History of colonoscopy Family History Family History Father Family history of high blood pressure Mother Family history of high blood pressure Sister Substance use disorder Social History Social History Housing: House Alcohol intake: current Alcohol intake frequency: a few times a month Alcohol type: beer, wine and hard liquor Patient Tobacco Use Status: Never used Tobacco e-Cigarette/Vaping Use: Never Used service: No Current occupational status: employed Cognitive needs: No Hearing needs: No Vision needs: No Physical Exam ED Vital Signs: Vital Signs - 24 hr 07/18/25 10:08 07/18/25 14:19 Temperature 98 F Pulse Rate 71 80 Respiratory Rate 16 16 Blood Pressure 156/95 H 160/89 H Pulse Oximetry 98 99 Oxygen Delivery Method Room Air Room Air BMI result Body Mass Index 31.6 Course Course Course Narrative: RME: 45 yold male with pmh of ulcerative colitits presents to the ED for intermettent chest pain for months no radiating down left arm with left arm nubmness. Patient deneis any slurred speech, facial droop, nusaea, vomitting, headache, dizziness, weakness, loss of vision, or paralysis of extremities. labs, EKG, chest xray ordered. Patient states only drinking on the weekend. 2:21pm: Patient wants to leave. Patient is still having arm tingling with slight improvement in chest pain. Patient informed necessity to remain to have 2nd blood test troponin to be drawn and to be evaluated in the ED by provider. 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 Patient explained worrisome signs cleaned risk of and informed return to the ED immediately. Medical Decision Making Lab Data 07/18/25 10:25 07/18/25 10:25 Labs: Lab Results 07/18/25 Range/Units 10:25 WBC 6.0 (4.8-10.8) X10*3/uL RBC 4.49 L (4.60-5.80) X10*6/uL Hgb 15.5 (14.0-18.0) g/dl Hct 43.6 (42.0-52.0) % MCV 97.1 (80.0-98.0) fL MCH 34.5 H (27.0-33.0) pg MCHC 35.6 (31.0-36.0) g/dl RDW 11.9 (11.0-16.0) % Plt Count 183 (160-400) X10*3/uL MPV 9.7 (9.4-12.4) fL Immature Gran % (Auto) 0.2 (0.0-0.4) % Neut % (Auto) 54.7 (45-73) % Lymph % (Auto) 33.8 (20-40) % Drew % (Auto) 6.0 (2-11) % Eos % (Auto) 4.5 H (0-4) % Baso % (Auto) 0.8 (0-2) % Lymph # (Auto) 2.0 (1.2-4.9) X10*3/uL Drew # (Auto) 0.4 (0.1-1.2) X10*3/uL Eos # (Auto) 0.3 (0.0-0.4) X10*3/uL Baso # (Auto) 0.1 (0.0-0.2) X10*3/uL Abs Immat Gran (auto) 0.01 (0.00-0.03) X10*3/uL Absolute Neuts (auto) 3.3 (2.0-8.3) x10*3/uL Absolute Nucleated RBC 0.000 (0.0-0.012) X10*3/uL Nucleated RBC % (auto) 0.0 (0.0-0.2) /100WBC PT 11.5 (10.9-12.4) SEC INR 1.0 (0.9-1.1) APTT 28.1 (26.7-34.1) SEC Sodium 142 (135-145) mmol/L Potassium 4.0 (3.3-5.1) mmol/L Chloride 105 (96-108) mmol/L Carbon Dioxide 31 H (22-29) mmol/L Anion Gap 10 L (12-20) BUN 13 (9-16) mg/dL Creatinine 0.77 (0.5-1.4) mg/dL Estim Creat Clear Calc 166.4 Estimated GFR > 60 Random Glucose 100 (60-115) mg/dL Calcium 8.9 (8.4-10.2) mg/dL Magnesium 2.1 (1.6-2.6) mg/dL Total Bilirubin 0.7 (0.0-1.0) mg/dL AST 28 (5-37) U/L ALT 41 H (0-40) U/L Alkaline Phosphatase 95 (39-117) U/L Troponin I High Sens < 2.7 (<3.5-35.0) ng/L NT-Pro-B Natriuret Pep 85.8 (<300) pg/mL Total Protein 7.0 (6.5-8.0) g/dL Albumin 4.7 (3.5-5.0) g/dL Lipase 22 (8-78) U/L Discharge Plan Discharge Clinical Impression: Chest pain Patient Disposition: Left W/O Completing Treatment Prescriptions: No Action omeprazole 20 mg capsule,delayed release(DR/EC) 20 mg PO BID 90 Days Qty: 180 3RF hydrocortisone-pramoxine 2.5-1 % cream 1 appl [place] BID PRN (Reason: hemorrhoids) 30 Days Qty: 30 1RF Discharge Date/Time: 07/18/25 14:21
[2025-07-18 10:29] LABS: MANUAL DIFF FLAG NO
[2025-07-18 10:35] LABS: Hematocrit 43.6 % (42.0-52.0); Hemoglobin 15.5 g/dl (14.0-18.0); Imm Gran Abs Auto 0.01 X10*3/uL (0.00-0.03); Imm Gran Pct Auto 0.2 % (0.0-0.4); Lymphocytes Absolute Auto 2.0 X10*3/uL (1.2-4.9); Mean Corpuscular HGB Conc 35.6 g/dl (31.0-36.0); Mean Corpuscular Hemoglobin 34.5 pg (27.0-33.0); Mean Corpuscular Volume 97.1 fL (80.0-98.0); NRBC Abs Auto 0.000 X10*3/uL (0.0-0.012); NRBC Pct Auto 0.0 /100WBC (0.0-0.2); Platelet Count 183 X10*3/uL (160-400); Red Blood Count 4.49 X10*6/uL (4.60-5.80); White Blood Count 6.0 X10*3/uL (4.8-10.8)
[2025-07-18 10:39] LABS: INTERNATIONAL NORM RATIO 1.0 (0.9-1.1); Prothrombin Time 11.5 SEC (10.9-12.4)
[2025-07-18 10:42] LABS: Partial Thromboplastin Time 28.1 SEC (26.7-34.1)
[2025-07-18 10:50] LABS: Alanine Aminotransferase 41 U/L (0-40); Albumin Level 4.7 g/dL (3.5-5.0); Alkaline Phosphatase 95 U/L (39-117); Anion Gap 10 (12-20); Aspartate Amino Transferase 28 U/L (5-37); Blood Urea Nitrogen 13 mg/dL (9-16); Calcium 8.9 mg/dL (8.4-10.2); Carbon Dioxide 31 mmol/L (22-29); Chloride 105 mmol/L (96-108); Creatinine Clr Calc Pharmacy 166.4; Estimated Glomerular Filt Rate > 60; Magnesium 2.1 mg/dL (1.6-2.6); Potassium 4.0 mmol/L (3.3-5.1); Sodium 142 mmol/L (135-145); Total Protein 7.0 g/dL (6.5-8.0)
[2025-07-18 10:59] LABS: NT Pro B Type Natriuretic Pept 85.8 pg/mL (<300)
[2025-07-18 11:00] LABS: Troponin-I High Sensitivity < 2.7 ng/L (<3.5-35.0)
[2025-07-18 12:37] LABS: Lipase 22 U/L (8-78)
[2025-07-18 14:19] VITALS: BP 160/89; PULSE 80; RESP 16; O2SAT 99
== END 2025-07-18 14:21 | disposition left against medical advice (07) ==
PROVIDERS: Physician Assistant; Physician Assistant Medical; Emergency Provider Emergency Medicine; PCP Nurse Practitioner Family
DX: R07.9 Chest pain, unspecified (principal); Z53.21 Procedure and treatment not carried out due to patient leaving prior to being seen by health care provider
CPT/HCPCS: 36415; 71046; 80053; 83690; 83735; 83880; 84484; 85025; 85610; 85730; 93005; 99281; 99283

== ENCOUNTER → 2025-07-18 09:58 | Outpatient (BNV) | payer OTHER, SELFPAY | PROVIDERS: Emergency Provider Emergency Medicine; PCP Nurse Practitioner Family; Visit Provider Internal Medicine | DX: R07.9 Chest pain, unspecified (principal); R00.2 Palpitations | CPT/HCPCS: 93010 ==

== ENCOUNTER → 2025-07-18 10:08 | Outpatient (BNV) | payer OTHER, SELFPAY | PROVIDERS: PCP Nurse Practitioner Family; Visit Provider Radiology Diagnostic Radiology | DX: R07.9 Chest pain, unspecified (principal) | CPT/HCPCS: 71046 ==